=== PATIENT | female | born 1970 | race Caucasian/White ===

== ENCOUNTER 2017-03-25 21:30 | Emergency (ER) | payer OTHER ==
[2017-03-25 21:52] VITALS: BP 160/74; PULSE 95; RESP 20; TEMP 99.3
--- NOTE | 2017-03-25 22:47 | ED ---
Skin/Abscess/FB HPI - General Source: patient, family Mode of arrival: ambulatory Limitations: no limitations <Arcelia Cano - Last Filed: 03/25/17 23:30> <Alfred Sinha - Last Filed: 03/26/17 04:25> - General Chief complaint: Skin/Abscess/Foreign Body Stated complaint: Rash Time Seen by Provider: 03/25/17 22:07 - History of Present Illness Initial comments: 46-year-old female patient with past medical history significant for leukemia presents to emergency department today for evaluation of rash to her left neck and scalp. Patient states that she developed a painful lump in her neck yesterday. Patient states that today she noticed she had a rash over the left neck, left upper back, and on her scalp. Patient states that the area is painful. She describes as a dull aching pain. She denies any itching or drainage. Denies any history of similar lesions. States she did have chickenpox as a child. Patient states that she was camping over the weekend however denies being in any nuno or trees, denies coming into contact with any plants. Denies any fever, chills, headache, auditory disturbance, visual disturbance, chest pain, shortness of breath, throat tightness, difficulty swallowing, abdominal pain, nausea, vomiting, or difficulty with urination or bowel movements. Denies any contacts with similar symptoms. (Arcelia Cano) - Related Data Home Medications Medication Instructions Recorded Confirmed Atenolol [Atenolol] 50 mg PO DAILY 07/08/15 03/25/17 Imatinib Mesylate [Gleevec] 400 mg PO DAILY 03/25/17 03/25/17 Potassium Citrate [Potassium 10 meq PO QID 03/25/17 03/25/17 Citrate ER] Previous Rx's Medication Instructions Recorded valACYclovir HCL [Valacyclovir] 1,000 mg PO Q8H #21 tab 03/25/17 Allergies Allergy/AdvReac Type Severity Reaction Status Date / Time No Known Allergies Allergy Verified 03/25/17 21:52 Review of Systems ROS Other: All systems not noted in ROS Statement are negative. <Arcelia Cano - Last Filed: 03/25/17 23:30> ROS Other: All systems not noted in ROS Statement are negative. <Alfred Sinha - Last Filed: 03/26/17 04:25> ROS Statement: Those systems with pertinent positive or pertinent negative responses have been documented in the HPI. Past Medical History Past Medical History: Hypertension Additional Past Medical History / Comment(s): leukemia, kidney stones History of Any Multi-Drug Resistant Organisms: None Reported Past Surgical History: Tubal Ligation Additional Past Surgical History / Comment(s): lithrotripsy, bone marrow biopsy Past Psychological History: Unable to Obtain Smoking Status: Never smoker Past Alcohol Use History: None Reported Past Drug Use History: None Reported <Arcelia Cano M - Last Filed: 03/25/17 23:30> General Exam Limitations: no limitations General appearance: alert, in no apparent distress Head exam: Present: atraumatic, normocephalic. Absent: normal inspection (Left scalp postauricular area reveals clusters of erythematous and vesicular rash.) ENT exam: Present: normal exam, normal oropharynx, mucous membranes moist, TM's normal bilaterally, other (External auditory canal is free from any lesion or rash.). Absent: normal external ear exam (Small area of erythematous vesicular rash to the left earlobe.) Neck exam: Absent: normal inspection (Left lateral neck reveals scattered erythematous vesicular lesions, no crusting, no drainage.), tenderness, meningismus, lymphadenopathy Respiratory exam: Present: normal lung sounds bilaterally. Absent: respiratory distress, wheezes, rales, rhonchi, stridor Cardiovascular Exam: Present: regular rate, normal rhythm, normal heart sounds. Absent: systolic murmur, diastolic murmur, rubs, gallop, clicks Extremities exam: Present: normal inspection, full ROM, normal capillary refill. Absent: tenderness, pedal edema, joint swelling, calf tenderness Back exam: Absent: normal inspection (Left upper back at the base of the neck shows a patch of small grouped vesicles with surrounding erythema.) Neurological exam: Present: alert, oriented X3, CN II-XII intact Psychiatric exam: Present: normal affect, normal mood Skin exam: Present: warm, dry, intact, normal color, rash (Rash as noted above.) <Arcelia Cano M - Last Filed: 03/25/17 23:30> Medical Decision Making <Arcelia Cano - Last Filed: 03/25/17 23:30> <Alfred Sinha - Last Filed: 03/26/17 04:25> - Medical Decision Making 46-year-old male patient presented to emergency department today for evaluation of a rash to her left scalp, neck, and left upper back. Findings are consistent with herpes zoster infection. Patient will be given a prescription for valacyclovir 1000 mg 3 times daily for 7 days. She is instructed to follow- up with her primary care physician and her oncologist over the next 1-2 days for recheck. Patient instructed to return immediately for any new, worsening, or concerning symptoms. Patient verbalizes understanding and agrees with this plan. (Arcelia Cano) 46-year-old female with rash on her left neck and left anterior chest wall, this does stop at the midline consistent with shingles. Patient does have history of leukemia and is currently on Gleevec. She is otherwise well- appearing. She is given a prescription for Valtrex and will follow up with her primary care physician. (Alfred Sinha) Disposition Time of Disposition: 22:49 <Arcelia Cano - Last Filed: 03/25/17 23:30> <Alfred Sinha - Last Filed: 03/26/17 04:25> Clinical Impression: Herpes zoster Disposition: HOME SELF-CARE Condition: Good Instructions: Shingles (ED) Additional Instructions: Complete medications as prescribed. Stop her primary care physician for recheck in 1-2 days. Return immediately for any worsening, new, or concerning symptoms. Prescriptions: valACYclovir HCL [Valacyclovir] 1,000 mg PO Q8H #21 tab Referrals: Cady Caal MD [Primary Care Provider] - 1-2 days
== END 2017-03-25 22:52 | disposition home or self-care (01) ==
LOC: EC 21:30
DX: B02.9 Zoster without complications (principal); I10 Essential (primary) hypertension; Z85.6 Personal history of leukemia; Z79.899 Other long term (current) drug therapy
CPT/HCPCS: 99282

== ENCOUNTER → 2021-03-17 | Outpatient (CLI) | payer OTHER ==
--- NOTE | 2021-03-17 23:45 | US ---
EXAMINATION TYPE: US kidneys/renal and bladder DATE OF EXAM: 03/17/2021 COMPARISON: NONE CLINICAL HISTORY: R94.4 Abnormal results of kidney function studies. Right kidney measures 9.3 x 3.4 x 3.8 cm. Renal parenchymal echogenicity is within normal limits. No hydronephrosis, shadowing calculi or renal mass seen. There is a 1 x 1 x 0.9 cm hypoechoic lesion in the right kidney upper pole. Left kidney measures 11.5 x 6.6 x 4.7 cm. Renal parenchymal echogenicity is within normal limits. No hydronephrosis, shadowing calculi or renal mass seen. The urinary bladder is partially distended, suboptimal for evaluation. Included portions of the liver are increased in echogenicity and mildly heterogeneous.The visualized portions of the spleen appear unremarkable. IMPRESSION: 1. NO SONOGRAPHIC EVIDENCE OF MEDICAL RENAL DISEASE HYDRONEPHROSIS OR NEPHROLITHIASIS. 2. HYPOECHOIC LESION RIGHT KIDNEY UPPER POLE MEASURES 1 X 1 X 0.9 CM, LIKELY REPRESENTS A COMPLEX CYS T, CONSIDER REPEAT ULTRASOUND OF THE KIDNEYS IN 6-12 MONTHS. 3. MILD HETEROGENEOUS ECHOTEXTURE TO THE LIVER WITH STEATOSIS, THE NEED FOR DEDICATED LIVER IMAGING S UCH ULTRASOUND SHOULD BE DETERMINED ON CLINICAL BASIS.
== END | disposition home or self-care (01) ==
LOC: RADUSWWP 15:50
PROVIDERS: ATTEND Family Medicine
DX: N28.9 Disorder of kidney and ureter, unspecified (principal); K76.0 Fatty (change of) liver, not elsewhere classified
CPT/HCPCS: 76770

== ENCOUNTER → 2021-04-13 | Outpatient (CLI) | payer OTHER ==
--- NOTE | 2021-04-13 09:27 | US ---
EXAMINATION TYPE: US liver DATE OF EXAM: 04/13/2021 COMPARISON: CT abdomen 2013 CLINICAL HISTORY: K76.0 Fatty (change of) liver. fatty liver and known rt kid cyst, no symptoms per p atient EXAM MEASUREMENTS: Liver Length: 17.1 cm Gallbladder Wall: 0.2 cm CBD: 0.4 cm Right Kidney: 9.7 x 3.6 x 3.4 cm Pancreas: wnl Liver: difficult to penetrate and heterogeneous Gallbladder: Surgically absent Evidence for sonographic Warren's sign: no CBD: wnl Right Kidney: 1.3cm cyst seen at superior pole, prior measurement = 1.0cm Visualized portion of pancreas within normal limits. Visualized liver heterogeneously hyperechoic. Ev aluation for focal masses suboptimal due to the heterogeneity. No surrounding ascites. No intrahepati c or extrahepatic biliary dilatation. Gallbladder seen without shadowing mobile gallstones. No gross right-sided hydronephrosis. IMPRESSION: New heterogeneous hyperechoic appearance of liver could be on basis of diffuse fatty infi ltration.
== END | disposition home or self-care (01) ==
LOC: RADUSWWP 08:12
PROVIDERS: ATTEND Family Medicine
DX: K76.0 Fatty (change of) liver, not elsewhere classified (principal); N28.1 Cyst of kidney, acquired
CPT/HCPCS: 76705

== ENCOUNTER → 2022-01-25 | Outpatient (CLI) | payer OTHER ==
[~2022-01-25] MED LIST: TIXAGEVIMAB/CILGAVIMAB (EUA) 300 MG/3 ML COMBO.PKG IM NR
[2022-01-25 09:40] VITALS: RESP 16; TEMP 98.2
[2022-01-25 10:38] VITALS: BP 117/73; PULSE 70
== END ==
LOC: PROCWHC3 09:18
PROVIDERS: ATTEND Internal Medicine Hematology & Oncology
DX: C92.10 Chronic myeloid leukemia, BCR/ABL-positive, not having achieved remission (principal); Z23 Encounter for immunization
CPT/HCPCS: Q0220; M0220

== ENCOUNTER 2023-01-21 21:16 | Inpatient (IN) | payer BC, OTHER ==
[2023-01-21] MEDS ORDERED: TRANEXAMIC 1,000 MG/100ML-NACL 1,000 MG in SALINE 1 100ML.BAG IV STA (21:24)
[2023-01-21 21:45] LABS: Basophils % (A) 0 %; Eosinophils # (A) 0.2 k/uL (0-0.7); Eosinophils % (A) 3 %; HCT 36.3 % (34.0-46.0); HGB 12.1 gm/dL (11.4-16.0); Lymphocytes # (A) 1.3 k/uL (1.0-4.8); Lymphocytes % (A) 17 %; MCHC 33.5 g/dL (31.0-37.0); MCV 98.7 fL (80.0-100.0); Mean Platelet Volume 7.5; Monocytes # (A) 0.4 k/uL (0-1.0); Monocytes % (A) 6 %; Neutrophils # (A) 5.6 k/uL (1.3-7.7); Neutrophils % (A) 73 %; Platelet Count 194 k/uL (150-450); RBC 3.67 m/uL (3.80-5.40); WBC 7.7 k/uL (3.8-10.6)
[2023-01-21] MEDS ORDERED: LORazepam 2 MG/ML INJ IV STA (21:50)
[2023-01-21] MEDS ORDERED: ROCURONIUM 10 MG/ML (5 ML VIAL) IV ONE (22:00)
[2023-01-21] MEDS ORDERED: ETOMIDATE 2 MG/ML 10 ML VIAL ONE (22:00)
[2023-01-21 22:04] LABS: ALT 25 U/L (4-34); AST 38 U/L (14-36); African American GFR (CKD) 51 (>60 ml/min/1.73 sqM); Albumin 3.7 g/dL (3.5-5.0); Alkaline Phosphatase 70 U/L (38-126); Anion Gap 7 mmol/L; Blood Urea Nitrogen 19 mg/dL (7-17); Carbon Dioxide 20 mmol/L (22-30); Chloride 111 mmol/L (98-107); Glucose 154 mg/dL (74-99); Non-African American GFR(CKD) 45 (>60 ml/min/1.73 sqM); Potassium 3.5 mmol/L (3.5-5.1); Sodium 138 mmol/L (137-145); Total Bilirubin 0.5 mg/dL (0.2-1.3); Total Protein 6.6 g/dL (6.3-8.2)
[2023-01-21 22:42] LABS: ABG Base Excess -13.4 mmol/L; ABG HCO3 17 mmol/L (21-25); ABG Oxygen Saturation 99.2 % (94-97); ABG PCO2 57 mmHg (35-45); ABG PO2 263 mmHg (83-108); ABG TCO2 18 mmol/L (19-24); Allen Test Performed? Yes
--- NOTE | 2023-01-21 22:48 | ED ---
Allergic Reaction HPI - General Chief complaint: Allergic Reaction Stated complaint: SWOLLEN TONGUE Time Seen by Provider: 01/21/23 21:30 Source: EMS Mode of arrival: EMS Limitations: no limitations - History of Present Illness Initial Comments: 52-year-old female with past medical history of CML in remission presents to the emergency department with tongue swelling. EMS report that the patient must have encountered something that caused an ALLERGIC reaction. Fire on scene administered an EpiPen. EMS did start an IV and gave the patient 125 of Solu- Medrol and 50 mg of Benadryl. Patient arrives to be and states that she hasn't eaten anything since 11 AM. She does take lisinopril and last dose was taken at 9 AM. She has been on this medication for several years. She denies any shortness of breath. No nausea or vomiting. No hives. No history of ALLERGIC reaction anything in the past. No other alleviating, precipitating or modifying factors - Related Data Home Medications Medication Instructions Recorded Confirmed atenoloL [Atenolol] 50 mg PO DAILY 07/08/15 01/21/23 Imatinib Mesylate [Gleevec] 400 mg PO DAILY 03/25/17 01/21/23 Escitalopram [Lexapro] 5 mg PO DAILY 01/21/23 01/21/23 Triamcinolone 0.1% Ointment 1 applic TOPICAL BID 01/21/23 01/21/23 [Kenalog 0.1% Ointment] metFORMIN HCL [Glucophage] 500 mg PO DAILY 01/21/23 01/21/23 Previous Rx's Medication Instructions Recorded predniSONE 10 mg PO DIRECTED 16 Days #40 01/25/23 tab Amoxic-Pot Clav 875-125Mg 1 each PO Q12HR tab 01/26/23 [Augmentin 875-125] Allergies Allergy/AdvReac Type Severity Reaction Status Date / Time lisinopril Allergy Anaphylaxis Verified 01/21/23 22:40 Review of Systems ROS Statement: Those systems with pertinent positive or pertinent negative responses have been documented in the HPI. ROS Other: All systems not noted in ROS Statement are negative. Past Medical History Past Medical History: Cancer, Hypertension Additional Past Medical History / Comment(s): leukemia, kidney stones History of Any Multi-Drug Resistant Organisms: None Reported Past Surgical History: Tubal Ligation Additional Past Surgical History / Comment(s): lithrotripsy, bone marrow biopsy Past Anesthesia/Blood Transfusion Reactions: No Reported Reaction Past Psychological History: Anxiety Smoking Status: Never smoker - Past Family History Mother Family Medical History: Diabetes Mellitus General Exam Limitations: physical limitation (significant tongue swelling) General appearance: alert, in no apparent distress Head exam: Present: atraumatic, normocephalic, normal inspection Eye exam: Present: normal appearance, PERRL, EOMI. Absent: scleral icterus, conjunctival injection, periorbital swelling ENT exam: Present: other (Proptotic tongue. Floor of mouth is swollen. Patient has significant neck soft tissue swelling) Neck exam: Present: other (swelling extending into anterior neck). Absent: tenderness, meningismus, lymphadenopathy Respiratory exam: Present: normal lung sounds bilaterally. Absent: respiratory distress, wheezes, rales, rhonchi, stridor Cardiovascular Exam: Present: normal rhythm, tachycardia, normal heart sounds. Absent: systolic murmur, diastolic murmur, rubs, gallop, clicks GI/Abdominal exam: Present: soft, normal bowel sounds. Absent: distended, tenderness, guarding, rebound, rigid Extremities exam: Present: normal inspection, full ROM, normal capillary refill. Absent: tenderness, pedal edema, joint swelling, calf tenderness Back exam: Present: normal inspection Neurological exam: Present: alert, oriented X3, CN II-XII intact Psychiatric exam: Present: normal affect, normal mood Skin exam: Present: warm, dry, intact, normal color. Absent: rash Course Vital Signs 01/21/23 01/21/23 01/21/23 21:20 21:27 21:30 Temperature Pulse Rate 115 H 115 H Pulse Rate [ Ticket Writer ] Respiratory 28 H 22 14 Rate Blood Pressure 137/84 137/84 Blood Pressure [Left Arm] O2 Sat by Pulse 99 98 97 Oximetry Fraction of Inspired Oxygen (FIO2) 01/21/23 01/21/23 01/21/23 21:33 21:53 22:00 Temperature Pulse Rate 124 H 128 H 134 H Pulse Rate [ Ticket Writer ] Respiratory 26 H 24 16 Rate Blood Pressure 138/100 155/66 131/68 Blood Pressure [Left Arm] O2 Sat by Pulse 96 98 98 Oximetry Fraction of Inspired Oxygen (FIO2) 01/21/23 01/21/23 01/21/23 22:22 22:23 22:45 Temperature Pulse Rate 123 H Pulse Rate [ Ticket Writer ] Respiratory 26 H Rate Blood Pressure 138/67 Blood Pressure [Left Arm] O2 Sat by Pulse 97 Oximetry Fraction of 100 100 Inspired Oxygen (FIO2) 01/21/23 01/21/23 01/21/23 22:53 23:10 23:20 Temperature Pulse Rate 122 H 120 H Pulse Rate [ Ticket Writer ] Respiratory 20 18 Rate Blood Pressure 132/73 136/76 Blood Pressure [Left Arm] O2 Sat by Pulse 96 97 Oximetry Fraction of 70 Inspired Oxygen (FIO2) 01/21/23 01/22/23 01/22/23 23:30 00:00 00:13 Temperature 98.2 F 98.4 F Pulse Rate 118 H 122 H Pulse Rate [ 103 H Ticket Writer ] Respiratory 18 30 H 17 Rate Blood Pressure 138/67 101/52 Blood Pressure 87/44 [Left Arm] O2 Sat by Pulse 97 98 96 Oximetry Fraction of 70 70 Inspired Oxygen (FIO2) Procedures - Intubation Sedative: Etomidate Mg Given: 20 Paralytic: Rocuronium Mg Given: 50 Laryngoscope: other (glidescope) Size: 4 Assist Device Used: Bougie ET Tube Size: 6 ET Tube Uncuffed: No Tube Secured Depth (cm): 22 Tube Secured Location: lips Tube Placement Confirmation: visualized tube passing through cords, equal breath sounds bilaterally, no breath sounds over epigastrium, confirmation by capnometry Intubation Complications: difficult intubation, other (significant airway swelling involving down to the cords) Medical Decision Making - Medical Decision Making Was pt. sent in by a medical professional or institution (, PA, [facility], urgent care, hospital, or [facility]...) When possible be specific @ -No Did you speak to anyone other than the patient for history (EMS, parent, family, police, friend...)? What history was obtained from this source @ -, ems Did you review nursing and triage notes (agree or disagree)? Why? @ -I reviewed and agree with nursing and triage notes Were old charts reviewed (outside hosp., previous admission, EMS record, old EKG, old radiological studies, urgent care reports/EKG's, [facility] records)? Report findings @ -No old charts were reviewed Differential Diagnosis (chest pain, altered mental status, abdominal pain women, abdominal pain men, vaginal bleeding, weakness, fever, dyspnea, syncope, headache, dizziness, GI bleed, back pain, seizure, CVA, palpatations, mental health, musculoskeletal)? @ -allergic reaction, ludwigs, angioedema EKG interpreted by me (3pts min.). @ -Yes and demonstrates sinus tachycardia with a rate of 116. TX interval 159. QRS 112. QTC of 421. No acute ST segment elevations or depressions X-rays interpreted by me (1pt min.). @ - yes, tube in correct position CT interpreted by me (1pt min.). @ -Not done U/S interpreted by me (1pt. min.). @ -None done What testing was considered but not performed or refused? (CT, X-rays, U/S, labs)? Why? @ -None What meds were considered but not given or refused? Why? @ -None Did you discuss the management of the patient with other professionals (professionals i.e. , PA, [facility], lab, RT, psych nurse, psychologist social, truck loader overhead crane, teacher, chief revenue officer, human services case manager)? Give summary @ -Dr. Fry, Dr. Gallegos Was smoking cessation discussed for >3mins.? @ -No Was critical care preformed (if so, how long)? @ -yes, 35 minutes for airway management Were there social determinants of health that impacted care today? How? (Homelessness, low income, unemployed, alcoholism, drug addiction, transpo rtation, low edu. Level, literacy, decrease access to med. care, senior care, rehab)? @ -No Was there de-escalation of care discussed even if they declined (Discuss DNR or withdrawal of care, Hospice)? DNR status @ -No What co-morbidities impacted this encounter? (DM, HTN, Smoking, COPD, CAD, Cancer, CVA, ARF, Chemo, Hep., AIDS, mental health diagnosis, sleep apnea, morbid obesity)? @ -htn Was patient admitted / discharged? Hospital course, mention meds given and route, prescriptions, significant lab abnormalities, going to OR and other pertinent info. @ -Upon arrival patient is placed into trauma 2. She does have significant tongue swelling. She was given a second dose of IM epi 0.5 mg. Upon discussion with the patient's she is on an FLORIAN inhibitor. She has not eaten since 11 AM. Suspected Florian induced angioedema. Patient was administered 1 g of TXA. She is also given 1 mg as she states she feels extremely anxious. Patient is watched closely however patient begins developing some minimal airway stridor. I did discuss protecting the patient's airway with intubation for which she was agreeable. Patient was given 20 mg of etomidate and cord is visualized. Patient is then given 50 mg of rocuronium. Several attempts are required to pass the tube due to significant swelling around the cords. A bougie is required and we are able to pass a 6 inch tube. Post chest x-ray demonstrates adequate placement. Patient will be admitted to Dr. Gallegos who accepted admission. Dr. Fry aware and accepts patient. Undiagnosed new problem with uncertain prognosis? @ -yes Drug Therapy requiring intensive monitoring for toxicity (Heparin, Nitro, Insulin, Cardizem)? @ -Propofol Were any procedures done? @ -Intubation Diagnosis/symptom? @ -acute angioedema, acute bipap dependance Acute, or Chronic, or Acute on Chronic? @ -acute Uncomplicated (without systemic symptoms) or Complicated (systemic symptoms)? @ -complicated Side effects of treatment? @ -No Exacerbation, Progression, or Severe Exacerbation? @ -No Poses a threat to life or bodily function? How? (Chest pain, [place], [place], pneumonia, PE, COPD, DKA, ARF, appy, cholecystitis, CVA, Diverticulitis, Homicidal, Suicidal, threat to staff... and all critical care pts) @ -yes - intubation was extremely difficult due to airway swelling - Lab Data Result diagrams: 01/26/23 10:23 01/26/23 10:23 Lab Results 01/21/23 01/21/23 01/21/23 Range/Units 21:24 21:24 21:55 WBC 7.7 (3.8-10.6) k/uL RBC 3.67 L (3.80-5.40) m/uL Hgb 12.1 (11.4-16.0) gm/dL Hct 36.3 (34.0-46.0) % MCV 98.7 (80.0-100.0) fL MCH 33.0 (25.0-35.0) pg MCHC 33.5 (31.0-37.0) g/dL RDW 14.0 (11.5-15.5) % Plt Count 194 (150-450) k/uL MPV 7.5 Neutrophils % 73 % Lymphocytes % 17 % Monocytes % 6 % Eosinophils % 3 % Basophils % 0 % Neutrophils # 5.6 (1.3-7.7) k/uL Lymphocytes # 1.3 (1.0-4.8) k/uL Monocytes # 0.4 (0-1.0) k/uL Eosinophils # 0.2 (0-0.7) k/uL Basophils # 0.0 (0-0.2) k/uL Sample Site ABG pH (7.35-7.45) ABG pCO2 (35-45) mmHg ABG pO2 (83-108) mmHg ABG HCO3 (21-25) mmol/L ABG Total CO2 (19-24) mmol/L ABG O2 Saturation (94-97) % ABG Base Excess mmol/L Bishop Test FiO2 % Sodium 138 (137-145) mmol/L Potassium 3.5 (3.5-5.1) mmol/L Chloride 111 H (98-107) mmol/L Carbon Dioxide 20 L (22-30) mmol/L Anion Gap 7 mmol/L BUN 19 H (7-17) mg/dL Creatinine 1.38 H (0.52-1.04) mg/dL Est GFR (CKD-EPI)AfAm 51 (>60 ml/min/1.73 sqM) Est GFR (CKD-EPI)NonAf 45 (>60 ml/min/1.73 sqM) Glucose 154 H (74-99) mg/dL Calcium 8.0 L (8.4-10.2) mg/dL Total Bilirubin 0.5 (0.2-1.3) mg/dL AST 38 H (14-36) U/L ALT 25 (4-34) U/L Alkaline Phosphatase 70 (38-126) U/L Total Protein 6.6 (6.3-8.2) g/dL Albumin 3.7 (3.5-5.0) g/dL Blood Type B Positive Blood Type Confirm Blood Type Recheck No Previous Record Bld Type Recheck Status CABO Indicated Antibody Screen NEGATIVE Spec Expiration Date 01/24/2023 - 235401/21/23 01/21/23 Range/Units 22:00 22:40 WBC (3.8-10.6) k/uL RBC (3.80-5.40) m/uL Hgb (11.4-16.0) gm/dL Hct (34.0-46.0) % MCV (80.0-100.0) fL MCH (25.0-35.0) pg MCHC (31.0-37.0) g/dL RDW (11.5-15.5) % Plt Count (150-450) k/uL MPV Neutrophils % % Lymphocytes % % Monocytes % % Eosinophils % % Basophils % % Neutrophils # (1.3-7.7) k/uL Lymphocytes # (1.0-4.8) k/uL Monocytes # (0-1.0) k/uL Eosinophils # (0-0.7) k/uL Basophils # (0-0.2) k/uL Sample Site rbra ABG pH 7.08 L* (7.35-7.45) ABG pCO2 57 H (35-45) mmHg ABG pO2 263 H (83-108) mmHg ABG HCO3 17 L (21-25) mmol/L ABG Total CO2 18 L (19-24) mmol/L ABG O2 Saturation 99.2 H (94-97) % ABG Base Excess -13.4 mmol/L Bishop Test Yes FiO2 100 % Sodium (137-145) mmol/L Potassium (3.5-5.1) mmol/L Chloride (98-107) mmol/L Carbon Dioxide (22-30) mmol/L Anion Gap mmol/L BUN (7-17) mg/dL Creatinine (0.52-1.04) mg/dL Est GFR (CKD-EPI)AfAm (>60 ml/min/1.73 sqM) Est GFR (CKD-EPI)NonAf (>60 ml/min/1.73 sqM) Glucose (74-99) mg/dL Calcium (8.4-10.2) mg/dL Total Bilirubin (0.2-1.3) mg/dL AST (14-36) U/L ALT (4-34) U/L Alkaline Phosphatase (38-126) U/L Total Protein (6.3-8.2) g/dL Albumin (3.5-5.0) g/dL Blood Type Blood Type Confirm B Positive Blood Type Recheck Bld Type Recheck Status Antibody Screen Spec Expiration Date Disposition Clinical Impression: Angioedema, Ventilator dependent Disposition: ADMITTED IP TO THIS [facility] Condition: Stable Is patient prescribed a controlled substance at d/c from ED?: No Time of Disposition: 23:20 Decision to Admit Reason: Admit from EC Decision Date: 01/21/23 Decision Time: 23:20
[2023-01-21 22:53] LABS: ABG PH 7.08 (7.35-7.45)
--- NOTE | 2023-01-21 23:06 | XR ---
ADDENDUM - Added by Larry Rowell MD on 01/21/2023 11:51 PM (-07:00) EXAM: XR Chest, 1 View CLINICAL HISTORY: Intubation. TECHNIQUE: Frontal view of the chest. COMPARISON: June 18, 2011. FINDINGS: Lungs: Unremarkable. No acute infiltration, atelectasis or mass. Pleural space: Unremarkable. No pneumothorax or pleural fluid. Heart: Unremarkable. No cardiomegaly. Mediastinum: Unremarkable. Bones/joints: No acute findings. Tubes, lines and devices: The tip of an endotracheal tube measures 2 cm above the manjula. IMPRESSION: The tip of an endotracheal tube measures centimeters above the manjula. EXAM: XR Chest, 1 View CLINICAL HISTORY: Intubation. TECHNIQUE: Frontal view of the chest. COMPARISON: June 18, 2011. FINDINGS: Lungs: Unremarkable. No acute infiltration, atelectasis or mass. Pleural space: Unremarkable. No pneumothorax or pleural fluid. Heart: Unremarkable. No cardiomegaly. Mediastinum: Unremarkable. Bones/joints: No acute findings. Tubes, lines and devices: The tip of an endotracheal tube measures centimeters above the manjula.
[2023-01-21] MEDS ORDERED: NALOXONE 0.4 MG/ML 1 ML VIAL IV PRN (23:20)
[2023-01-22 00:08] LABS: Glucose,Whole Blood 287 mg/dL (70-110)
[2023-01-22] MEDS ORDERED: DEXTROSE 50% SYRINGE 50 ML IVP PRN ×2 (00:11)
[2023-01-22] MEDS ORDERED: SODIUM CHLORIDE 0.9% 1,000 ML IV SCH (00:15)
--- NOTE | 2023-01-22 00:52 | XR ---
EXAM: XR Chest, 1 View CLINICAL HISTORY: Nasogastric tube placement TECHNIQUE: Frontal view of the chest. COMPARISON: No relevant prior studies available. FINDINGS: Lungs: Appearance of mild infiltration or atelectasis in the left lung base obscuring the left hemidiaphragm. Lungs otherwise clear. Pleural space: Unremarkable. No pneumothorax or pleural fluid. Heart: Unremarkable. No cardiomegaly. Mediastinum: Unremarkable. Bones/joints: No acute findings. Tubes, lines and devices: The tip of an endotracheal tube measures 3.1 cm above the manjula. A gastric tube is seen in the stomach. The tip is not seen. IMPRESSION: 1. Appearance of mild infiltration or atelectasis in the left lung base obscuring the left hemidiaphragm. 2. The tip of an endotracheal tube measures 3.1 cm above the manjula. A gastric tube is seen in the stomach. The tip is not seen.
[2023-01-22] MEDS ORDERED: SODIUM CHLORIDE 0.9% 500 ML 500 ML IV ONE (00:55)
[2023-01-22] MEDS: INSULIN ASPART (NovoLOG) 100 UNIT/ML VIAL SQ SCH ×5 (00:57→23:25)
[2023-01-22 01:02] LABS: ABG Base Excess -9.2 mmol/L; ABG HCO3 18 mmol/L (21-25); ABG Oxygen Saturation 96.3 % (94-97); ABG PCO2 41 mmHg (35-45); ABG PH 7.25 (7.35-7.45); ABG PO2 86 mmHg (83-108); ABG TCO2 19 mmol/L (19-24); Allen Test Performed? Yes
[2023-01-22 01:12] LABS: African American GFR (CKD) 52 (>60 ml/min/1.73 sqM); Anion Gap 12 mmol/L; Blood Urea Nitrogen 19 mg/dL (7-17); Calcium 7.2 mg/dL (8.4-10.2); Carbon Dioxide 16 mmol/L (22-30); Chloride 110 mmol/L (98-107); Glucose 304 mg/dL (74-99); Magnesium 1.4 mg/dL (1.6-2.3); Non-African American GFR(CKD) 45 (>60 ml/min/1.73 sqM); Potassium 3.9 mmol/L (3.5-5.1); Sodium 138 mmol/L (137-145)
[2023-01-22 01:30] LABS: Basophils % (A) 0 %; Eosinophils % (A) 0 %; HCT 33.1 % (34.0-46.0); HGB 10.9 gm/dL (11.4-16.0); Hypochromasia Slight; Lymphocytes # (A) 0.4 k/uL (1.0-4.8); Lymphocytes % (A) 4 %; MCH 33.4 pg (25.0-35.0); MCHC 32.8 g/dL (31.0-37.0); MCV 101.7 fL (80.0-100.0); Macrocytosis Slight; Mean Platelet Volume 7.5; Monocytes # (A) 0.1 k/uL (0-1.0); Monocytes % (A) 1 %; Neutrophils # (A) 9.8 k/uL (1.3-7.7); Neutrophils % (A) 95 %; Platelet Count 189 k/uL (150-450); RBC 3.26 m/uL (3.80-5.40); RDW 13.9 % (11.5-15.5); WBC 10.4 k/uL (3.8-10.6)
[2023-01-22] MEDS ORDERED: SODIUM CHLORIDE 0.9% 1,000 ML IV ONE (01:43)
[2023-01-22] MEDS ORDERED: Magnesium Replacement Protocol 1 EACH MISC MISCELLANE PRN (02:25)
[2023-01-22] MEDS ORDERED: Potassium Replacement Protocol 1 EACH MISC MISCELLANE PRN ×2 (02:26→20:33)
--- NOTE | 2023-01-22 02:43 | P.CNPUL ---
History of Present Illness Consult date: 01/22/23 Requesting physician: Opal Slater Reason for consult: other (ICU management) Chief complaint: Tongue swelling History of present illness: I am seeing this patient in new consultation today 01/22/2023 following an ALLERGIC reaction and angioedema. Patient is a 52-year-old white female with pa st medical history significant for hypertension, diabetes mellitus type 2, chronic kidney disease, and CML. Patient is currently intubated to the mechanical ventilator, and most of this HPI is collected from the patient's family members and chart. Patient's states that yesterday evening the patient started to experience some nausea, vomiting, diarrhea, followed by facial and tongue swelling. The patient's states that she has been taking blood pressure medication for the last 1-2 years, but was unsure if Lisinopril was a new medication. Denies the patient trying any new foods or prior ALLERGIC reactions. EMS was called and the patient was administered an EpiPen on the scene. Patient also was given IV Solu-Medrol and Benadryl. The patient was taken to the emergency room last night, and required rapid sequence intubation for airway protection. Post intubation chest x-ray shows endotracheal tube approximately 3 cm from the manjula, possible mild infiltrate or more likely atelectasis in the left lung base, and an orogastric tube coursing below the diaphragm. Patient is currently in the intensive care unit, intubated, and synchronous with the mechanical ventilator. Current ventilator settings are assist control, respiratory rate 16, tidal volume 350, FiO2 70%, an d PEEP of 5. Most recent ABG show a pO2 of 86, pCO2 of 41, pH of 7.25. Propofol is currently infusing at 60 mcg/kg/m for sedation. While in the emergency room, the patient did receive a dose of TXA and IM epinephrine. Patient is currently hypotensive and tachycardic. The patient will be given additional fluids. No vasopressors are currently infusing. CBC on arrival was unremarkable. BMP on a rrival shows a sodium 138, potassium 3.5, chloride 111, serum CO2 20, BUN 19, creatinine 1.3, glucose 154. Patient will be monitored in the intensive care unit. Review of Systems ROS unobtainable: due to endotracheal tube Past Medical History Past Medical History: Cancer, Diabetes Mellitus, Hypertension Additional Past Medical History / Comment(s): leukemia 2004, kidney stones 2015 History of Any Multi-Drug Resistant Organisms: None Reported Past Surgical History: Tubal Ligation Additional Past Surgical History / Comment(s): lithrotripsy 2014, bone marrow biopsy 2004 Past Anesthesia/Blood Transfusion Reactions: No Reported Reaction Past Psychological History: Anxiety, Panic Disorder Smoking Status: Never smoker Past Alcohol Use History: None Reported Past Drug Use History: None Reported - Past Family History Mother Family Medical History: Diabetes Mellitus Medications and Allergies Home Medications Medication Instructions Recorded Confirmed Type atenoloL [Atenolol] 50 mg PO DAILY 07/08/15 01/21/23 History Imatinib Mesylate [Gleevec] 400 mg PO DAILY 03/25/17 01/21/23 History Escitalopram [Lexapro] 5 mg PO DAILY 01/21/23 01/21/23 History Triamcinolone 0.1% Ointment 1 applic TOPICAL BID 01/21/23 01/21/23 History [Kenalog 0.1% Ointment] metFORMIN HCL [Glucophage] 500 mg PO DAILY 01/21/23 01/21/23 History Allergies Allergy/AdvReac Type Severity Reaction Status Date / Time lisinopril Allergy Anaphylaxis Verified 01/21/23 22:40 Physical Exam Vitals: Vital Signs Temp Pulse Pulse Resp BP BP Pulse Ox 01/22/23 01:16 98.2 F 105 H 19 80/44 96 01/22/23 01:00 105 H 27 H 75/38 96 01/22/23 00:46 01/22/23 00:30 120 H 26 H 93 L 01/22/23 00:13 98.4 F 103 H 17 87/44 96 01/22/23 00:00 98.2 F 122 H 30 H 101/52 98 01/21/23 23:30 118 H 18 138/67 97 01/21/23 23:20 120 H 18 136/76 97 01/21/23 23:10 122 H 20 132/73 96 01/21/23 22:53 01/21/23 22:45 123 H 26 H 138/67 97 01/21/23 22:23 01/21/23 22:22 01/21/23 22:00 134 H 16 131/68 98 01/21/23 21:53 128 H 24 155/66 98 01/21/23 21:33 124 H 26 H 138/100 96 01/21/23 21:30 115 H 14 137/84 97 01/21/23 21:27 115 H 22 137/84 98 01/21/23 21:20 28 H 99 FiO2 01/22/23 01:16 70 01/22/23 01:00 01/22/23 00:46 70 01/22/23 00:30 01/22/23 00:13 70 01/22/23 00:00 70 01/21/23 23:30 01/21/23 23:20 01/21/23 23:10 01/21/23 22:53 70 01/21/23 22:45 01/21/23 22:23 100 01/21/23 22:22 100 01/21/23 22:00 01/21/23 21:53 01/21/23 21:33 01/21/23 21:30 01/21/23 21:27 01/21/23 21:20 Intake and Output 01/21/23 01/21/23 01/22/23 14:59 22:59 06:59 Intake Total 1530.681 Output Total 270 Balance 1260.681 Intake: IV 1500 Sodium Chloride 0.9% 1, 1000 000 ml @ 999 mls/hr IV . Q1H1M ONE Rx#:[id number] Sodium Chloride 0.9% 500 500 ml 500 ml @ 999 mls/hr IV .Q31M ONE Rx#:[id number] Intake, IV Titration 30.681 Amount propofoL 1,000 mg In 30.681 Empty Bag 1 bag @ 15 MCG/ KG/MIN 7.757 mls/hr IV . [id number] [facility] Rx#:[id number] Output: Urine 270 Other: Weight 86.183 kg 86.183 kg GENERAL EXAM: 52-year-old, obese white female, sedated and synchronous with mechanical ventilator. HEAD: Normocephalic and atraumatic. There is facial swelling and obvious swelling of the tongue. EYES: Normal reaction of pupils, equal size. NOSE: Clear with pink turbinates. THROAT: No erythema or exudates. NECK: No masses, no JVD. CHEST: No chest wall deformity. LUNGS: Equal air entry with minimal wheezing. no crackles, rhonchi or dullness. Intubated to mechanical ventilator CVS: S1 and S2 normal with no audible murmur, regular rhythm. No extra heart sounds. Heart rate is tachycardic ABDOMEN: Obese abdomen. No hepatosplenomegaly, active bowel sounds, no guarding or rigidity. SPINE: No scoliosis or deformity SKIN: No rashes CENTRAL NERVOUS SYSTEM: No focal deficits, tone is normal in all 4 extremities. EXTREMITIES: There is no peripheral edema, clubbing, or cyanosis. Peripheral pulses are intact. Results - Laboratory Findings CBC and BMP: 01/22/23 05:29 01/22/23 08:31 ABG ABG pH 7.25 (7.35-7.45) L 01/22/23 00:56 ABG pCO2 41 mmHg (35-45) 01/22/23 00:56 ABG pO2 86 mmHg (83-108) 01/22/23 00:56 ABG O2 Saturation 96.3 % (94-97) 01/22/23 00:56 Abnormal lab findings: Abnormal Labs 01/21/23 01/21/23 01/21/23 21:24 21:24 22:40 RBC 3.67 L Hgb Hct MCV Neutrophils # Lymphocytes # ABG pH 7.08 L* ABG pCO2 57 H ABG pO2 263 H ABG HCO3 17 L ABG Total CO2 18 L ABG O2 Saturation 99.2 H Chloride 111 H Carbon Dioxide 20 L BUN 19 H Creatinine 1.38 H Glucose 154 H POC Glucose (mg/dL) Calcium 8.0 L Magnesium AST 38 H 01/22/23 01/22/23 01/22/23 00:06 00:39 00:39 RBC 3.26 L Hgb 10.9 L Hct 33.1 L MCV 101.7 H Neutrophils # 9.8 H Lymphocytes # 0.4 L ABG pH ABG pCO2 ABG pO2 ABG HCO3 ABG Total CO2 ABG O2 Saturation Chloride 110 H Carbon Dioxide 16 L BUN 19 H Creatinine 1.36 H Glucose 304 H POC Glucose (mg/dL) 287 H Calcium 7.2 L Magnesium 1.4 L AST 01/22/23 00:56 RBC Hgb Hct MCV Neutrophils # Lymphocytes # ABG pH 7.25 L ABG pCO2 ABG pO2 ABG HCO3 18 L ABG Total CO2 ABG O2 Saturation Chloride Carbon Dioxide BUN Creatinine Glucose POC Glucose (mg/dL) Calcium Magnesium AST - Diagnostic Findings Chest x-ray: image reviewed Assessment and Plan Assessment: Angioedema possibly related to lisinopril, patient was treated with IM epinephrine, Solu-Medrol, Benadryl, and was given a dose of TXA. Acute hypoxemic and hypercapnic respiratory failure secondary to above, currently intubated to the mechanical ventilator Hypotension and possible anaphylactic shock, currently receiving fluid resusc itation. No need for vasopressors at the moment Essential hypertension Diabetes mellitus type 2, [id number] Chronic kidney disease stage III CML currently being treated with Gleevec Obesity, with a BMI of 37 Plan: Patient's medications, labs, chest x-ray reviewed Continue current mechanical ventilator settings and wean FiO2 as tolerated Repeat ABG in the morning Repeat chest x-ray in the morning Lisinopril has been stopped Give an additional 1 L normal saline bolus Continue maintenance fluids Patient was given a dose of TXA in the ER Continue IV Solu-Medrol and Benadryl Propofol for sedation Pepcid for GI prophylaxis Heparin for DVT prophylaxis We will continue to monitor the patient in the intensive care unit I have personally seen and examined the patient, performed the documentation and the assessment and plan as written. Number of minutes spent on the visit:20 This is a joint evaluation that was done along with a nurse practitioner. This is a 52-year-old female patient, obese with a body mass index of 39 with features of obstructive sleep apnea with takes OLMAN inhibitor's. The patient presented emergency with respiratory failure and angioedema and this was thought to be related to lisinopril. In the emergency, the patient was treated with FFP, TXA, Solu-Medrol, Benadryl and epinephrine. At this point in time, the patient remains intubated by a #orotracheal tube. She is on propofol which is running at 60 mcg/kg/m. She is hemodynamically stable. Breath sounds are equal and bilateral. Lip and tongue are still swollen and the tongue remains somewhat tortuous. He had since improved compared to yesterday. She remains on IV Solu- Medrol. She is on IV fluids with lactated Ringer at the rate of 75 mL an hour. The repeat blood gas from this morning showed a pH of 7.26 with a pCO2 of 41 and pO2 of 75. She does have a component of non-anion gap metabolic acidosis. The bicarb level is down to 14. Sugars are slightly elevated and this is a steroid induced hyperglycemia. She has underlying chronic lymphocytic leukemia/CLL and the patient has been maintained on Gleevec on an outpatient basis. She also has history of chronic stage III kidney disease. Chest x-ray from this morning shows adequate expansion of both lungs. No pneumonia or consolidation. ET tube is in a good location. This is a ventilator changes were done. Increase the tidal volume of 400 and increase the flow up to 65. She seems to be quite comfortable at this point in time. At times she moves and stacks of breath. She is synchronous with a electrical checkout mechanic and ventilator for the most part. We'll continue with the Solu-Medrol 60 mg every 6 hours. Continue Pepcid. Continue Benadryl. No plans for extubation today. Stop the OLMAN inhibitor obviously. Consult with hematology oncology. As mentioned, there is a component of melena negative metabolic acidosis. I'm going to switch to her IV fluids to a bicarb infusion at the rate of 75 mL an hour. Will monitor acid base status. We'll continue to follow. Condition is critical at this point in time. Evaluation was done> 30min Time with Patient: Greater than 30
[2023-01-22] MEDS ORDERED: POTASSIUM BICARBONATE/CIT AC 20 MEQ TABLET.EFF NG-TUBE SCH ×2 (03:00→07:00)
[2023-01-22] MEDS: MAGNESIUM SULFATE-D5W PMX 1 GM in DEXTROSE/WATER 1 100ML.BAG IVPB SCH ×2 (03:15→04:53)
[2023-01-22] MEDS: IPRATROPIUM-ALBUTEROL 3 ML NEB INHALATION SCH ×5 (03:28→21:25)
[2023-01-22 04:49] LABS: Allen Test Performed? Yes
[2023-01-22 05:50] LABS: Glucose,Whole Blood 255 mg/dL (70-110)
[2023-01-22 05:57] LABS: ABG Base Excess -8.8 mmol/L; ABG HCO3 18 mmol/L (21-25); ABG PCO2 41 mmHg (35-45); ABG PH 7.26 (7.35-7.45); ABG PO2 175 mmHg (83-108); ABG TCO2 20 mmol/L (19-24)
[2023-01-22 05:58] LABS: ABG Oxygen Saturation 99.8 % (94-97)
[2023-01-22 06:12] LABS: African American GFR (CKD) 53 (>60 ml/min/1.73 sqM); Anion Gap 10 mmol/L; Blood Urea Nitrogen 18 mg/dL (7-17); Calcium 6.8 mg/dL (8.4-10.2); Carbon Dioxide 14 mmol/L (22-30); Chloride 113 mmol/L (98-107); Glucose 264 mg/dL (74-99); Non-African American GFR(CKD) 46 (>60 ml/min/1.73 sqM); Potassium 3.9 mmol/L (3.5-5.1); Sodium 137 mmol/L (137-145)
[2023-01-22 06:16] LABS: Basophils % (A) 0 %; Eosinophils % (A) 0 %; HCT 31.5 % (34.0-46.0); HGB 10.2 gm/dL (11.4-16.0); Hypochromasia Slight; Lymphocytes # (A) 0.4 k/uL (1.0-4.8); Lymphocytes % (A) 6 %; MCH 33.4 pg (25.0-35.0); MCHC 32.4 g/dL (31.0-37.0); MCV 103.2 fL (80.0-100.0); Macrocytosis Slight; Mean Platelet Volume 7.6; Monocytes # (A) 0.1 k/uL (0-1.0); Monocytes % (A) 1 %; Neutrophils # (A) 6.3 k/uL (1.3-7.7); Neutrophils % (A) 93 %; Platelet Count 163 k/uL (150-450); RBC 3.05 m/uL (3.80-5.40); RDW 13.9 % (11.5-15.5); WBC 6.8 k/uL (3.8-10.6)
[2023-01-22] MEDS: diphenhydrAMINE 50 MG/ML 1 ML VIAL IVP SCH ×4 (06:31→23:25)
[2023-01-22] MEDS: methylPREDNISolone SOD SUCCI 125 MG/2 ML VIAL IV SCH ×4 (06:31→23:25)
[2023-01-22] MEDS ORDERED: LACTATED RINGERS 1,000 ML IV SCH (07:30)
--- NOTE | 2023-01-22 08:21 | XR ---
EXAMINATION TYPE: XR chest 1V portable DATE OF EXAM: 01/22/2023 COMPARISON: 01/23/2000 HISTORY: Shortness of breath TECHNIQUE: Single frontal view of the chest is obtained. FINDINGS: ET and NG tube are stable and in good position. Heart size stable and there is bilateral l ower lobe and 3 small effusion. No overt failure or pneumothorax. Osseous structures are stable IMPRESSION: Stable bilateral lower lobe infiltrate and small effusion.
[2023-01-22] MEDS: HEPARIN SODIUM,PORCINE/PF 5,000 UNIT/0.5 ML SYRINGE SQ SCH ×3 (08:43→23:25)
[2023-01-22] MEDS: CHLORHEXIDINE GLUCONATE 15 ML CUP MUCOUS MEM SCH ×2 (08:43→20:59)
[2023-01-22] MEDS ORDERED: FAMOTIDINE 20 MG/2 ML VIAL IV SCH (09:00)
[2023-01-22 11:49] LABS: Glucose,Whole Blood 217 mg/dL (70-110)
[2023-01-22] MEDS: DEXTROSE 5% IN WATER 1,000 ML with SODIUM BICARB (1 MEQ/ML) 150 ML IV SCH (12:00)
[2023-01-22] MEDS: LORazepam 2 MG/ML INJ IV PRN ×3 (17:09→23:59)
[2023-01-22 18:21] LABS: Glucose,Whole Blood 251 mg/dL (70-110)
--- NOTE | 2023-01-22 18:48 | P.HPIM ---
History of Present Illness H&P Date: 01/22/23 Faustino Kelly, is a 52-year-old female who presented to [facility] emergency room with a chief complaint of nausea or vomiting and facial and tongue swelling. She was evaluated in the emergency room patient started having difficulty breathing and underwent intubation and was started on mechanical ventilation in the emergency room patient was admitted to intensive care unit. Pulmonary consultation was requested. Patient has a known history of hypertension she has been maintained on multiple blood pressure medications including atenolol and lisinopril, she also has a known history of chronic myelocytic leukemia, history of kidney stones, history of vsi-cvoeali-endqtllab diabetes mellitus, and history of anxiety with panic disorder. Past Medical History Past Medical History: Cancer, Diabetes Mellitus, Hypertension Additional Past Medical History / Comment(s): leukemia 2004, kidney stones 2014 History of Any Multi-Drug Resistant Organisms: None Reported Past Surgical History: Tubal Ligation Additional Past Surgical History / Comment(s): lithrotripsy 2014, bone marrow biopsy 2004 Past Anesthesia/Blood Transfusion Reactions: No Reported Reaction Past Psychological History: Anxiety, Panic Disorder Smoking Status: Never smoker Past Alcohol Use History: None Reported Past Drug Use History: None Reported - Past Family History Mother Family Medical History: Diabetes Mellitus Medications and Allergies Home Medications Medication Instructions Recorded Confirmed Type atenoloL [Atenolol] 50 mg PO DAILY 07/08/15 01/21/23 History Imatinib Mesylate [Gleevec] 400 mg PO DAILY 03/25/17 01/21/23 History Escitalopram [Lexapro] 5 mg PO DAILY 01/21/23 01/21/23 History Triamcinolone 0.1% Ointment 1 applic TOPICAL BID 01/21/23 01/21/23 History [Kenalog 0.1% Ointment] metFORMIN HCL [Glucophage] 500 mg PO DAILY 01/21/23 01/21/23 History Allergies Allergy/AdvReac Type Severity Reaction Status Date / Time lisinopril Allergy Anaphylaxis Verified 01/21/23 22:40 Physical Exam Vitals: Vital Signs Temp Pulse Pulse Resp BP BP Pulse Ox 01/22/23 12:00 98 F 120 H 22 111/65 99 01/22/23 11:30 106 H 17 111/65 99 01/22/23 11:25 98 01/22/23 11:15 98 01/22/23 11:00 96 16 120/65 99 01/22/23 10:50 01/22/23 10:30 99 17 120/65 100 01/22/23 10:00 110 H 17 120/65 100 01/22/23 09:30 101 H 15 105/61 100 01/22/23 09:00 105 H 16 105/61 98 01/22/23 08:30 109 H 16 111/73 98 01/22/23 08:22 96 01/22/23 08:04 96 01/22/23 08:00 97.8 F 86 17 116/78 97 01/22/23 07:44 01/22/23 07:30 90 18 116/78 98 01/22/23 07:00 93 18 109/67 98 01/22/23 06:30 95 19 120/71 98 01/22/23 06:00 105 H 16 101/60 97 01/22/23 05:30 101 H 16 94/54 98 01/22/23 05:00 109 H 15 110/65 97 01/22/23 04:49 01/22/23 04:30 109 H 15 102/61 98 01/22/23 04:01 97.7 F 112 H 13 115/67 98 01/22/23 03:53 01/22/23 03:40 92 01/22/23 03:30 90 15 121/75 98 01/22/23 03:29 90 01/22/23 03:27 01/22/23 03:00 92 105/52 96 01/22/23 02:30 90 18 85/54 96 01/22/23 02:00 100 20 101/52 95 01/22/23 01:30 105 H 19 80/44 95 01/22/23 01:16 98.2 F 105 H 19 80/44 96 01/22/23 01:00 105 H 27 H 75/38 96 01/22/23 00:46 01/22/23 00:30 120 H 26 H 93 L 01/22/23 00:13 98.4 F 103 H 17 87/44 96 01/22/23 00:00 98.2 F 122 H 30 H 101/52 98 01/21/23 23:30 118 H 18 138/67 97 01/21/23 23:20 120 H 18 136/76 97 01/21/23 23:10 122 H 20 132/73 96 01/21/23 22:53 01/21/23 22:45 123 H 26 H 138/67 97 01/21/23 22:23 01/21/23 22:22 01/21/23 22:00 134 H 16 131/68 98 01/21/23 21:53 128 H 24 155/66 98 01/21/23 21:33 124 H 26 H 138/100 96 01/21/23 21:30 115 H 14 137/84 97 01/21/23 21:27 115 H 22 137/84 98 01/21/23 21:20 28 H 99 FiO2 01/22/23 12:00 50 01/22/23 11:30 01/22/23 11:25 01/22/23 11:15 01/22/23 11:00 01/22/23 10:50 50 01/22/23 10:30 01/22/23 10:00 01/22/23 09:30 01/22/23 09:00 01/22/23 08:30 01/22/23 08:22 01/22/23 08:04 01/22/23 08:00 50 01/22/23 07:44 50 01/22/23 07:30 01/22/23 07:00 01/22/23 06:30 01/22/23 06:00 50 01/22/23 05:30 01/22/23 05:00 50 01/22/23 04:49 50 01/22/23 04:30 60 01/22/23 04:01 60 01/22/23 03:53 70 01/22/23 03:40 01/22/23 03:30 01/22/23 03:29 01/22/23 03:27 60 01/22/23 03:00 70 01/22/23 02:30 01/22/23 02:00 70 01/22/23 01:30 01/22/23 01:16 70 01/22/23 01:00 01/22/23 00:46 70 01/22/23 00:30 01/22/23 00:13 70 01/22/23 00:00 70 01/21/23 23:30 01/21/23 23:20 01/21/23 23:10 01/21/23 22:53 70 01/21/23 22:45 01/21/23 22:23 100 01/21/23 22:22 100 01/21/23 22:00 01/21/23 21:53 01/21/23 21:33 01/21/23 21:30 01/21/23 21:27 01/21/23 21:20 Intake and Output 01/21/23 01/22/23 01/22/23 22:59 06:59 14:59 Intake Total 2286.149 428.778 Output Total 810 485 Balance 1476.149 -56.222 Intake: IV 2075 75 Magnesium Sulfate-D5w Pmx 200 1 gm In Dextrose/Water 1 100ml.bag @ 100 mls/hr IVPB Q1H REPLACED BY [facility] Rx#: [id number] Sodium Chloride 0.9% 1, 375 75 000 ml @ 75 mls/hr IV . [id number] REPLACED BY [facility] Rx#:[id number] Sodium Chloride 0.9% 1, 1000 000 ml @ 999 mls/hr IV . Q1H1M ONE Rx#:[id number] Sodium Chloride 0.9% 500 500 ml 500 ml @ 999 mls/hr IV .Q31M ONE Rx#:[id number] Intake, IV Titration 211.149 353.778 Amount Dextrose 5% in Water 1, 75 000 ml @ 75 mls/hr IV . [id number] JENNIFER with Sodium Bicarb (1 Meq/ml) 150 ml Rx#:[id number] Lactated Ringers 1,000 ml 225 @ 75 mls/hr IV .[id number] REPLACED BY [facility] Rx#:[id number] propofoL 1,000 mg In 211.149 53.778 Empty Bag 1 bag @ 15 MCG/ KG/MIN 7.757 mls/hr IV . [id number] REPLACED BY [facility] Rx#:[id number] Output: Urine 810 485 Other: Voiding Method Indwelling Catheter Indwelling Catheter Weight 86.183 kg 91.4 kg In general patient is intubated sedated maintained on mechanical ventilation HEENT head normocephalic and atraumatic Neck is supple no JVD no goiter no lymphadenopathy no carotid bruit Chest examination is clear to auscultation no crackles no wheezing Cardiac exam reveals regular heart sounds S1 and S2 no gallops no murmurs Abdomen is soft nontender no organomegaly with normal bowel sounds Extremity exam reveals no edema no cyanosis or clubbing Neurological examination reveals no gross focal deficits Results CBC & Chem 7: 01/22/23 05:29 01/22/23 08:31 Labs: Abnormal Lab Results - Last 24 Hours (Table) 01/21/23 01/21/23 01/21/23 Range/Units 21:24 21:24 22:40 RBC 3.67 L (3.80-5.40) m/uL Hgb (11.4-16.0) gm/dL Hct (34.0-46.0) % MCV (80.0-100.0) fL Neutrophils # (1.3-7.7) k/uL Lymphocytes # (1.0-4.8) k/uL ABG pH 7.08 L* (7.35-7.45) ABG pCO2 57 H (35-45) mmHg ABG pO2 263 H (83-108) mmHg ABG HCO3 17 L (21-25) mmol/L ABG Total CO2 18 L (19-24) mmol/L ABG O2 Saturation 99.2 H (94-97) % Chloride 111 H (98-107) mmol/L Carbon Dioxide 20 L (22-30) mmol/L BUN 19 H (7-17) mg/dL Creatinine 1.38 H (0.52-1.04) mg/dL Glucose 154 H (74-99) mg/dL POC Glucose (mg/dL) (70-110) mg/dL Calcium 8.0 L (8.4-10.2) mg/dL Magnesium (1.6-2.3) mg/dL AST 38 H (14-36) U/L 01/22/23 01/22/23 01/22/23 Range/Units 00:06 00:39 00:39 RBC 3.26 L (3.80-5.40) m/uL Hgb 10.9 L (11.4-16.0) gm/dL Hct 33.1 L (34.0-46.0) % MCV 101.7 H (80.0-100.0) fL Neutrophils # 9.8 H (1.3-7.7) k/uL Lymphocytes # 0.4 L (1.0-4.8) k/uL ABG pH (7.35-7.45) ABG pCO2 (35-45) mmHg ABG pO2 (83-108) mmHg ABG HCO3 (21-25) mmol/L ABG Total CO2 (19-24) mmol/L ABG O2 Saturation (94-97) % Chloride 110 H (98-107) mmol/L Carbon Dioxide 16 L (22-30) mmol/L BUN 19 H (7-17) mg/dL Creatinine 1.36 H (0.52-1.04) mg/dL Glucose 304 H (74-99) mg/dL POC Glucose (mg/dL) 287 H (70-110) mg/dL Calcium 7.2 L (8.4-10.2) mg/dL Magnesium 1.4 L (1.6-2.3) mg/dL AST (14-36) U/L 01/22/23 01/22/23 01/22/23 Range/Units 00:56 04:45 05:29 RBC 3.05 L (3.80-5.40) m/uL Hgb 10.2 L (11.4-16.0) gm/dL Hct 31.5 L (34.0-46.0) % MCV 103.2 H (80.0-100.0) fL Neutrophils # (1.3-7.7) k/uL Lymphocytes # 0.4 L (1.0-4.8) k/uL ABG pH 7.25 L 7.26 L (7.35-7.45) ABG pCO2 (35-45) mmHg ABG pO2 175 H (83-108) mmHg ABG HCO3 18 L 18 L (21-25) mmol/L ABG Total CO2 (19-24) mmol/L ABG O2 Saturation 99.8 H (94-97) % Chloride (98-107) mmol/L Carbon Dioxide (22-30) mmol/L BUN (7-17) mg/dL Creatinine (0.52-1.04) mg/dL Glucose (74-99) mg/dL POC Glucose (mg/dL) (70-110) mg/dL Calcium (8.4-10.2) mg/dL Magnesium (1.6-2.3) mg/dL AST (14-36) U/L 01/22/23 01/22/23 01/22/23 Range/Units 05:29 05:49 11:48 RBC (3.80-5.40) m/uL Hgb (11.4-16.0) gm/dL Hct (34.0-46.0) % MCV (80.0-100.0) fL Neutrophils # (1.3-7.7) k/uL Lymphocytes # (1.0-4.8) k/uL ABG pH (7.35-7.45) ABG pCO2 (35-45) mmHg ABG pO2 (83-108) mmHg ABG HCO3 (21-25) mmol/L ABG Total CO2 (19-24) mmol/L ABG O2 Saturation (94-97) % Chloride 113 H (98-107) mmol/L Carbon Dioxide 14 L (22-30) mmol/L BUN 18 H (7-17) mg/dL Creatinine 1.34 H (0.52-1.04) mg/dL Glucose 264 H (74-99) mg/dL POC Glucose (mg/dL) 255 H 217 H (70-110) mg/dL Calcium 6.8 L (8.4-10.2) mg/dL Magnesium (1.6-2.3) mg/dL AST (14-36) U/L Assessment and Plan Plan: ALLERGIC reaction with angioedema possibly related to OLMAN inhibitor Anaphylactic shock with hypotension, received multiple IV fluid boluses Acute hypoxemic and hypercapnic respiratory failure requiring intubation and mechanical ventilation started in the emergency room Underlying history of hypertension Underlying history of ehc-rysogan-lequnqzdw diabetes mellitus Underlying history of chronic myelocytic leukemia maintained on Gleevec Underlying history of chronic kidney disease stage III Underlying history of morbid obesity At this time patient is admitted to intensive care unit She is intubated sedated maintained on mechanical ventilation She is receiving IV fluid, IV Solu-Medrol, and Benadryl For DVT prophylaxis subcu Lovenox Pulmonary critical care following Will follow closely
[2023-01-22] MEDS: POTASSIUM BICARBONATE/CIT AC 20 MEQ TABLET.EFF NG-TUBE SCH ×2 (20:59→22:11)
[2023-01-23] MEDS: POTASSIUM BICARBONATE/CIT AC 20 MEQ TABLET.EFF PO SCH ×2 (02:00→03:00)
[2023-01-23] MEDS: atenoloL 50 MG TAB PO SCH ×2 (02:00→10:00)
[2023-01-23] MEDS: DEXTROSE 5% IN WATER 1,000 ML with SODIUM BICARB (1 MEQ/ML) 150 ML IV SCH (02:00)
[2023-01-23] MEDS ORDERED: ACETAMINOPHEN TAB 325 MG TAB PO PRN (02:20)
[2023-01-23] MEDS ORDERED: ACETAMINOPHEN TAB 325 MG TAB ONE (03:02)
[2023-01-23] MEDS: LORazepam 2 MG/ML INJ IV PRN ×2 (03:12→14:37)
[2023-01-23 05:21] LABS: ABG PCO2 40 mmHg (35-45); ABG PH 7.39 (7.35-7.45); ABG PO2 80 mmHg (83-108); Allen Test Performed? Yes
[2023-01-23 05:29] LABS: Glucose,Whole Blood 283 mg/dL (70-110)
[2023-01-23 05:39] LABS: Glucose,Whole Blood 289 mg/dL (70-110)
[2023-01-23 05:56] LABS: Glucose,Whole Blood 303 mg/dL (70-110)
[2023-01-23] MEDS: INSULIN ASPART (NovoLOG) 100 UNIT/ML VIAL SQ SCH ×4 (06:04→23:05)
[2023-01-23] MEDS: POTASSIUM BICARBONATE/CIT AC 20 MEQ TABLET.EFF NG-TUBE SCH (06:09)
[2023-01-23] MEDS: methylPREDNISolone SOD SUCCI 125 MG/2 ML VIAL IV SCH ×4 (06:10→23:05)
[2023-01-23] MEDS: IPRATROPIUM-ALBUTEROL 3 ML NEB INHALATION SCH ×5 (06:10→20:50)
[2023-01-23] MEDS: diphenhydrAMINE 50 MG/ML 1 ML VIAL IVP SCH ×4 (06:10→23:05)
[2023-01-23 06:12] LABS: Basophils % (A) 0 %; Eosinophils % (A) 0 %; HCT 30.2 % (34.0-46.0); HGB 10.1 gm/dL (11.4-16.0); Hypochromasia Slight; Lymphocytes # (A) 0.4 k/uL (1.0-4.8); Lymphocytes % (A) 5 %; MCH 34.4 pg (25.0-35.0); MCHC 33.3 g/dL (31.0-37.0); MCV 103.4 fL (80.0-100.0); Macrocytosis Slight; Mean Platelet Volume 7.8; Monocytes # (A) 0.3 k/uL (0-1.0); Monocytes % (A) 3 %; Neutrophils # (A) 8.4 k/uL (1.3-7.7); Neutrophils % (A) 91 %; Platelet Count 172 k/uL (150-450); RBC 2.92 m/uL (3.80-5.40); RDW 14.2 % (11.5-15.5); WBC 9.2 k/uL (3.8-10.6)
[2023-01-23 06:15] LABS: African American GFR (CKD) 61 (>60 ml/min/1.73 sqM); Anion Gap 9 mmol/L; Blood Urea Nitrogen 16 mg/dL (7-17); Calcium 6.8 mg/dL (8.4-10.2); Carbon Dioxide 21 mmol/L (22-30); Chloride 108 mmol/L (98-107); Glucose 289 mg/dL (74-99); Non-African American GFR(CKD) 53 (>60 ml/min/1.73 sqM); Potassium 3.6 mmol/L (3.5-5.1); Sodium 138 mmol/L (137-145)
[2023-01-23] MEDS ORDERED: POTASSIUM BICARBONATE/CIT AC 20 MEQ TABLET.EFF NG-TUBE SCH ×2 (07:00→18:00)
--- NOTE | 2023-01-23 07:58 | XR ---
EXAMINATION TYPE: XR chest 1V portable DATE OF EXAM: 01/23/2023 COMPARISON: 01/22/2023 HISTORY: Tube placement TECHNIQUE: Single frontal view of the chest is obtained. FINDINGS: ET and NG tube are stable and in good position. Heart size stable and there is bilateral l ower lobe and 3 small effusion. No overt failure or pneumothorax. Osseous structures are stable IMPRESSION: Minimal bilateral lower lobe infiltrate and small effusion.
[2023-01-23] MEDS: HEPARIN SODIUM,PORCINE/PF 5,000 UNIT/0.5 ML SYRINGE SQ SCH ×3 (08:49→23:05)
[2023-01-23] MEDS: CHLORHEXIDINE GLUCONATE 15 ML CUP MUCOUS MEM SCH (08:50)
[2023-01-23] MEDS: FAMOTIDINE 20 MG/2 ML VIAL IV SCH (08:50)
--- NOTE | 2023-01-23 10:25 | P.PN ---
Subjective Progress Note Date: 01/23/23 I am seeing this patient in new consultation today 01/22/2023 following an ALLERGIC reaction and angioedema. Patient is a 52-year-old white female with past medical history significant for hypertension, diabetes mellitus type 2, chronic kidney disease, and CML. Patient is currently [facility] ventil[facility], and most of this HPI is collected from the patient's family members and chart. Patient's states that yesterday evening the patient started to experience some nausea, vomiting, diarrhea, followed by facial and tongue swelling. The patient's states that she has been taking blood pressure medication for the last 1-2 years, but was unsure if Lisinopril was a new medication. Denies the patient trying any new foods or prior ALLERGIC reactions. EMS was called and the patient was administered an EpiPen on the scene. Patient also was given IV Solu-Medrol and Benadryl. The patient was taken to the emergency room last night, and required rapid sequence intubation for airway protection. Post intubation chest x-ray shows endotracheal tube approximately 3 cm from the manjula, possible mild infiltrate or more likely atelectasis in the left lung base, and an orogastric tube coursing below the diaphragm. Patient is currently in the intensive care unit, intubated, and synchronous with the mechanical ventilator. Current ventilator settings are assist control, respiratory rate 16, tidal volume 350, FiO2 70%, and PEEP of 5. Most recent ABG show a pO2 of 86, pCO2 of 41, pH of 7.25. Propofol is currently infusing at 60 mcg/kg/m for sedation. While in the emergency room, the patient did receive a dose of TXA and IM epinephrine. Patient is currently hypotensive and tachycardic. The patient will be given additional fluids. No vasopressors are currently infusing. CBC on arrival was unremarkable. BMP on arrival shows a sodium 138, potassium 3.5, chloride 111, serum CO2 20, BUN 19, creatinine 1.3, glucose 154. Patient will be monitored in the intensive care unit. On today's evaluation of 01/23/2023, the patient remains intubated on a mechanical ventilator. The patient was intubated for airway protection as the patient had angioedema. This was induced by OLMAN inhibitor. This morning, she remains on propofol running at 20 mcg/kg/m. She is on IV fluid at 75 mL an hour. She is receiving IV Solu-Medrol and IV Benadryl. She remains on assist-control mode of mechanical ventilation at the rate of 16, tidal volume of 400, FiO2 of 40% with a PEEP of 5. Peak airway pressure is 25. The chest x-ray from today shows no acute abnormalities. Orotracheal tube is in a good location. NG tube is in a good location. Noted the patient is intubated via #6 orotracheal tube. Blood gas from today shows a pH of 7.39 with episodes of 40 and pO2 of 80. BUN is at 60 with a creatinine of 1.2 and a sodium level is at 138. Patient's blood sugar is also elevated at 289. The risk was at 9.2 with a hemoglobin of 10.5. No other significant events overnight. She is known to have history of CML. He is Objective - Vital Signs Vital signs: Vital Signs Temp 98.6 F 01/23/23 08:00 Pulse 122 H 01/23/23 09:00 Resp 24 01/23/23 09:00 BP 103/56 01/23/23 09:00 Pulse Ox 92 L 01/23/23 09:00 FiO2 40 01/23/23 08:00 Intake & Output 01/22/23 01/23/23 01/23/23 18:59 06:59 18:59 Intake Total 2559.561 1037.663 266.088 Output Total 885 875 75 Balance 187.373 452.663 191.088 Weight 91 kg Intake: IV 75 900 150 Dextrose 5% in Water 1, 900 150 000 ml @ 75 mls/hr IV . [id number] JENNIFER with Sodium Bicarb (1 Meq/ml) 150 ml Rx#:[id number] Sodium Chloride 0.9% 1, 75 000 ml @ 75 mls/hr IV . [id number] JENN[facility]ER Rx#:[id number] Intake, IV Titration 997.373 427.663 116.088 Amount Dextrose 5% in Water 1, 525 75 000 ml @ 75 mls/hr IV . [id number] JENNIFER with Sodium Bicarb (1 Meq/ml) 150 ml Rx#:[id number] Lactated Ringers 1,000 ml 225 @ 75 mls/hr IV .[id number] JENN[facility]ER Rx#:[id number] propofoL 1,000 mg In 247.373 352.663 116.088 Empty Bag 1 bag @ 15 MCG/ KG/MIN 7.757 mls/hr IV . [id number] JENNIFER Rx#:[id number] Output: Urine 885 875 75 Other: Voiding Method Indwelling Catheter Indwelling Catheter Indwelling Catheter - Exam GENERAL EXAM: 52-year-old, obese white female, sedated and synchronous with mechanical ventilator. HEAD: Normocephalic and atraumatic. There is facial swelling and obvious swelling of the tongue. EYES: Normal reaction of pupils, equal size. NOSE: Clear with pink turbinates. THROAT: No erythema or exudates. NECK: No masses, no JVD. CHEST: No chest wall deformity. LUNGS: Equal air entry with minimal wheezing. no crackles, rhonchi or dullness. Intubated to mechanical ventilator CVS: S1 and S2 normal with no audible murmur, regular rhythm. No extra heart sounds. Heart rate is tachycardic ABDOMEN: Obese abdomen. No hepatosplenomegaly, active bowel sounds, no guarding or rigidity. SPINE: No scoliosis or deformity SKIN: No rashes CENTRAL NERVOUS SYSTEM: No focal deficits, tone is normal in all 4 extremities. EXTREMITIES: There is no peripheral edema, clubbing, or cyanosis. Peripheral pulses are intact. - Labs CBC & Chem 7: 01/23/23 05:40 01/23/23 09:32 Labs: Abnormal Lab Results - Last 24 Hours (Table) 01/22/23 01/22/23 01/22/23 Range/Units 11:48 18:20 19:50 RBC (3.80-5.40) m/uL Hgb (11.4-16.0) gm/dL Hct (34.0-46.0) % MCV (80.0-100.0) fL Neutrophils # (1.3-7.7) k/uL Lymphocytes # (1.0-4.8) k/uL ABG pO2 (83-108) mmHg ABG O2 Saturation (94-97) % Potassium 3.4 L (3.5-5.1) mmol/L Chloride (98-107) mmol/L Carbon Dioxide (22-30) mmol/L Creatinine (0.52-1.04) mg/dL Glucose (74-99) mg/dL POC Glucose (mg/dL) 217 H 251 H (70-110) mg/dL Calcium (8.4-10.2) mg/dL 01/22/23 01/23/23 01/23/23 Range/Units 23:10 00:36 05:33 RBC (3.80-5.40) m/uL Hgb (11.4-16.0) gm/dL Hct (34.0-46.0) % MCV (80.0-100.0) fL Neutrophils # (1.3-7.7) k/uL Lymphocytes # (1.0-4.8) k/uL ABG pO2 80 L (83-108) mmHg ABG O2 Saturation 98.0 H (94-97) % Potassium 3.4 L (3.5-5.1) mmol/L Chloride (98-107) mmol/L Carbon Dioxide (22-30) mmol/L Creatinine (0.52-1.04) mg/dL Glucose (74-99) mg/dL POC Glucose (mg/dL) 283 H (70-110) mg/dL Calcium (8.4-10.2) mg/dL 01/23/23 01/23/23 01/23/23 Range/Units 05:38 05:40 05:40 RBC 2.92 L (3.80-5.40) m/uL Hgb 10.1 L (11.4-16.0) gm/dL Hct 30.2 L (34.0-46.0) % MCV 103.4 H (80.0-100.0) fL Neutrophils # 8.4 H (1.3-7.7) k/uL Lymphocytes # 0.4 L (1.0-4.8) k/uL ABG pO2 (83-108) mmHg ABG O2 Saturation (94-97) % Potassium (3.5-5.1) mmol/L Chloride 108 H (98-107) mmol/L Carbon Dioxide 21 L (22-30) mmol/L Creatinine 1.21 H (0.52-1.04) mg/dL Glucose 289 H (74-99) mg/dL POC Glucose (mg/dL) 289 H (70-110) mg/dL Calcium 6.8 L (8.4-10.2) mg/dL 01/23/23 Range/Units 05:54 RBC (3.80-5.40) m/uL Hgb (11.4-16.0) gm/dL Hct (34.0-46.0) % MCV (80.0-100.0) fL Neutrophils # (1.3-7.7) k/uL Lymphocytes # (1.0-4.8) k/uL ABG pO2 (83-108) mmHg ABG O2 Saturation (94-97) % Potassium (3.5-5.1) mmol/L Chloride (98-107) mmol/L Carbon Dioxide (22-30) mmol/L Creatinine (0.52-1.04) mg/dL Glucose (74-99) mg/dL POC Glucose (mg/dL) 303 H (70-110) mg/dL Calcium (8.4-10.2) mg/dL Microbiology - Last 24 Hours (Table) 01/22/23 00:59 Gram Stain - Preliminary Sputum Assessment and Plan Assessment: Angioedema possibly related to lisinopril, patient was treated with IM epinephr ine, Solu-Medrol, Benadryl, and was given a dose of TXA. Patient is intubated on a mechanical ventilator. Swelling is improved on today's evaluation. We'll proceed with a cuff leak test and if there is adequately, we'll proceed with weaning trial and possible extubation. Acute hypoxemic and hypercapnic respiratory failure secondary to above, currently intubated to the mechanical ventilator Hypotension and possible anaphylactic shock, currently receiving fluid resuscitation. No need for vasopressors at the moment, the patient is hemodynamically stable Essential hypertension Diabetes mellitus type 2, hqh-zsfiixl-kdtzrcsyf, there is a component of steroid-induced hyperglycemia Chronic kidney disease stage III CML currently being treated with Gleevec Obesity, with a BMI of 37 An anion gap metabolic acidosis and the patient is improved and serum bicarbs of 21. The patient continues to be on a bicarb infusion at the rate of 75 mL an hour. Plan: Swelling of the tongue of the lip is improved. Noted the patient has features of obstructive sleep apnea and she had compromised airway which probably got worse after she developed angioedema the patient to be intubated and placed on a mechanical ventilator. Since then, the patient was treated with combination of medications including steroids. The cough leak test was positive and the patient had significant amount of leaks around the 2. Based on that, I made the decision to extubate this patient today. We'll stop the sedation. Patient is awake for now. We'll proceed with extubation. Use BiPAP if needed. Continue Solu-Medrol for another 24 hours. We'll continue to follow. We'll switch her IV fluids to normal saline at rate of 75 mL an hour. He is 1 cm there is any We'll continue to follow. Condition is critical at this point in time. Evaluation was done> 30min Time with Patient: Greater than 30
[2023-01-23] MEDS ORDERED: guaiFENesin SYRUP 100MG/5ML 200 MG/10 ML CUP PO PRN (11:24)
[2023-01-23 11:31] LABS: Glucose,Whole Blood 233 mg/dL (70-110)
--- NOTE | 2023-01-23 11:40 | P.PN ---
Subjective Progress Note Date: 01/23/23 Faustino Kelly, is a 52-year-old female who presented to [facility] emergency room with a chief complaint of nausea or vomiting and facial and tongue swelling. She was evaluated in the emergency room patient started having difficulty breathing and underwent intubation and was started on mechanical ventilation in the emergency room patient was admitted to intensive care unit. Pulmonary consultation was requested. Patient has a known history of hypertension she has been maintained on multiple blood pressure medications including atenolol and lisinopril, she also has a known history of chronic myelocytic leukemia, history of kidney stones, history of anx-mypuwob-zaybcdowu diabetes mellitus, and history of anxiety with panic disorder. On 2119.3 patient is alert and oriented 3 patient has been extubated remains in the intensive care unit. Family at bedside. Patient currently on 5 L cannula. At this time patient denies chest pain or shortness of breath. Patient denies nausea vomiting or diarrhea. Patient denies any urinary burning or frequency patient remains on IV steroids Objective - Vital Signs Vital signs: Vital Signs Temp 98.6 F 01/23/23 08:00 Pulse 123 H 01/23/23 11:22 Resp 23 01/23/23 11:00 BP 109/60 01/23/23 11:00 Pulse Ox 91 L 01/23/23 11:00 FiO2 40 01/23/23 08:00 Intake & Output 01/22/23 01/23/23 01/23/23 18:59 06:59 18:59 Intake Total 3471.113 8638.663 268.415 Output Total 885 875 75 Balance 187.373 452.663 193.415 Weight 91 kg Intake: IV 75 900 150 Dextrose 5% in Water 1, 900 150 000 ml @ 75 mls/hr IV . [id number] JENNIFER with Sodium Bicarb (1 Meq/ml) 150 ml Rx#:[id number] Sodium Chloride 0.9% 1, 75 000 ml @ 75 mls/hr IV . [id number] JENNIFER Rx#:[id number] Intake, IV Titration 997.373 427.663 118.415 Amount Dextrose 5% in Water 1, 525 75 000 ml @ 75 mls/hr IV . [id number] JENNIFER with Sodium Bicarb (1 Meq/ml) 150 ml Rx#:[id number] Lactated Ringers 1,000 ml 225 @ 75 mls/hr IV .[id number] JENNIFER Rx#:[id number] propofoL 1,000 mg In 247.373 352.663 118.415 Empty Bag 1 bag @ 15 MCG/ KG/MIN 7.757 mls/hr IV . [id number] [facility] Rx#:[id number] Output: Urine 885 875 75 Other: Voiding Method Indwelling Catheter Indwelling Catheter Indwelling Catheter - Exam In general patient is intubated sedated maintained on mechanical ventilation HEENT head normocephalic and atraumatic Neck is supple no JVD no goiter no lymphadenopathy no carotid bruit Chest examination is clear to auscultation no crackles no wheezing Cardiac exam reveals regular heart sounds S1 and S2 no gallops no murmurs Abdomen is soft nontender no organomegaly with normal bowel sounds Extremity exam reveals no edema no cyanosis or clubbing Neurological examination reveals no gross focal deficits - Labs CBC & Chem 7: 01/23/23 05:40 01/23/23 09:32 Labs: Abnormal Lab Results - Last 24 Hours (Table) 01/22/23 01/22/23 01/22/23 Range/Units 11:48 18:20 19:50 RBC (3.80-5.40) m/uL Hgb (11.4-16.0) gm/dL Hct (34.0-46.0) % MCV (80.0-100.0) fL Neutrophils # (1.3-7.7) k/uL Lymphocytes # (1.0-4.8) k/uL ABG pO2 (83-108) mmHg ABG O2 Saturation (94-97) % Potassium 3.4 L (3.5-5.1) mmol/L Chloride (98-107) mmol/L Carbon Dioxide (22-30) mmol/L Creatinine (0.52-1.04) mg/dL Glucose (74-99) mg/dL POC Glucose (mg/dL) 217 H 251 H (70-110) mg/dL Calcium (8.4-10.2) mg/dL 01/22/23 01/23/23 01/23/23 Range/Units 23:10 00:36 05:33 RBC (3.80-5.40) m/uL Hgb (11.4-16.0) gm/dL Hct (34.0-46.0) % MCV (80.0-100.0) fL Neutrophils # (1.3-7.7) k/uL Lymphocytes # (1.0-4.8) k/uL ABG pO2 80 L (83-108) mmHg ABG O2 Saturation 98.0 H (94-97) % Potassium 3.4 L (3.5-5.1) mmol/L Chloride (98-107) mmol/L Carbon Dioxide (22-30) mmol/L Creatinine (0.52-1.04) mg/dL Glucose (74-99) mg/dL POC Glucose (mg/dL) 283 H (70-110) mg/dL Calcium (8.4-10.2) mg/dL 01/23/23 01/23/23 01/23/23 Range/Units 05:38 05:40 05:40 RBC 2.92 L (3.80-5.40) m/uL Hgb 10.1 L (11.4-16.0) gm/dL Hct 30.2 L (34.0-46.0) % MCV 103.4 H (80.0-100.0) fL Neutrophils # 8.4 H (1.3-7.7) k/uL Lymphocytes # 0.4 L (1.0-4.8) k/uL ABG pO2 (83-108) mmHg ABG O2 Saturation (94-97) % Potassium (3.5-5.1) mmol/L Chloride 108 H (98-107) mmol/L Carbon Dioxide 21 L (22-30) mmol/L Creatinine 1.21 H (0.52-1.04) mg/dL Glucose 289 H (74-99) mg/dL POC Glucose (mg/dL) 289 H (70-110) mg/dL Calcium 6.8 L (8.4-10.2) mg/dL 01/23/23 01/23/23 Range/Units 05:54 11:30 RBC (3.80-5.40) m/uL Hgb (11.4-16.0) gm/dL Hct (34.0-46.0) % MCV (80.0-100.0) fL Neutrophils # (1.3-7.7) k/uL Lymphocytes # (1.0-4.8) k/uL ABG pO2 (83-108) mmHg ABG O2 Saturation (94-97) % Potassium (3.5-5.1) mmol/L Chloride (98-107) mmol/L Carbon Dioxide (22-30) mmol/L Creatinine (0.52-1.04) mg/dL Glucose (74-99) mg/dL POC Glucose (mg/dL) 303 H 233 H (70-110) mg/dL Calcium (8.4-10.2) mg/dL Microbiology - Last 24 Hours (Table) 01/22/23 00:59 Gram Stain - Preliminary Sputum Assessment and Plan Plan: ALLERGIC reaction with angioedema possibly related to OLMAN inhibitor Anaphylactic shock with hypotension, received multiple IV fluid boluses Acute hypoxemic and hypercapnic respiratory failure requiring intubation and mechanical ventilation started in the emergency room Underlying history of hypertension Underlying history of rdg-dycpwcg-zgrtasond diabetes mellitus Underlying history of chronic myelocytic leukemia maintained on Gleevec Underlying history of chronic kidney disease stage III Underlying history of morbid obesity At this time patient is admitted to intensive care unit Patient extubated on 01/23/2023 She is receiving IV fluid, IV Solu-Medrol, and Benadryl For DVT prophylaxis subcu Lovenox Pulmonary critical care following Will follow closely
[2023-01-23] MEDS: SODIUM CHLORIDE 0.9% 1,000 ML IV SCH (12:51)
--- NOTE | 2023-01-23 12:59 | P.CONS ---
History of Present Illness - Reason for Consult Consult date: 01/23/23 hx CML Requesting physician: Sadi Stern - Chief Complaint allergic reaction - History of Present Illness Patient is a 52-year-old female with past medical history of CML. She is a patient of Dr. Ly. She has been on Gleevac since diagnose since 2004 with remission of disease. Patient presented to the ER with tongue swelling. She was administered an EpiPen [employer], and was also given 125 of Solu-Medrol and 50 mg of Benadryl. Of note patient does take lisinopril and has been on this medication for several years. At todays visit patient is in the ICU, ventilated and on sedation. HPI limited due to patients acute condition. Vitals stable. Review of Systems 10 point ROS is negative except as stated in the HPI Past Medical History Past Medical History: Cancer, Diabetes Mellitus, Hypertension Additional Past Medical History / Comment(s): leukemia 2004, kidney stones 2014 History of Any Multi-Drug Resistant Organisms: None Reported Past Surgical History: Tubal Ligation Additional Past Surgical History / Comment(s): lithrotripsy 2014, bone marrow biopsy 2004 Past Anesthesia/Blood Transfusion Reactions: No Reported Reaction Past Psychological History: Anxiety, Panic Disorder Smoking Status: Never smoker Past Alcohol Use History: None Reported Past Drug Use History: None Reported - Past Family History Mother Family Medical History: Diabetes Mellitus Medications and Allergies Home Medications Medication Instructions Recorded Confirmed Type atenoloL [Atenolol] 50 mg PO DAILY 07/08/15 01/21/23 History Imatinib Mesylate [Gleevec] 400 mg PO DAILY 03/25/17 01/21/23 History Escitalopram [Lexapro] 5 mg PO DAILY 01/21/23 01/21/23 History Triamcinolone 0.1% Ointment 1 applic TOPICAL BID 01/21/23 01/21/23 History [Kenalog 0.1% Ointment] metFORMIN HCL [Glucophage] 500 mg PO DAILY 01/21/23 01/21/23 History Allergies Allergy/AdvReac Type Severity Reaction Status Date / Time lisinopril Allergy Anaphylaxis Verified 01/21/23 22:40 Physical Exam Vitals: Vital Signs Temp Pulse Resp BP Pulse Ox FiO2 01/23/23 11:22 123 H 01/23/23 11:07 122 H 01/23/23 11:00 122 H 23 109/60 91 L 06/21/23 10:00 120 H 21 102/55 92 L 01/23/23 09:00 122 H 24 103/56 92 L 01/23/23 08:16 105 H 01/23/23 08:09 107 H 01/23/23 08:00 98.6 F 105 H 22 107/64 93 L 40 01/23/23 07:22 40 01/23/23 07:00 106 H 20 100/61 93 L 01/23/23 06:00 110 H 21 100/61 95 01/23/23 05:00 112 H 19 101/59 97 01/23/23 04:00 98.3 F 115 H 14 110/66 97 40 01/23/23 03:00 117 H 18 107/62 95 01/23/23 02:00 121 H 16 105/58 97 50 01/23/23 01:00 115 H 19 118/68 96 01/23/23 00:00 98.3 F 105 H 16 110/63 99 50 01/22/23 23:00 107 H 16 108/61 97 01/22/23 22:00 110 H 18 117/72 97 01/22/23 21:40 108 H 01/22/23 21:25 101 H 01/22/23 21:19 50 01/22/23 21:00 105 H 18 120/69 97 01/22/23 20:00 98.9 F 105 H 18 126/72 100 50 01/22/23 19:00 116 H 17 109/58 100 01/22/23 18:00 109 H 16 107/56 98 01/22/23 17:00 112 H 17 110/57 99 01/22/23 16:00 98.3 F 120 H 21 117/64 99 50 01/22/23 15:44 108 H 01/22/23 15:33 109 H 01/22/23 15:24 50 01/22/23 15:00 98 14 111/67 99 01/22/23 14:00 113 H 18 109/64 99 01/22/23 13:00 107 H 17 129/67 100 Intake and Output 01/22/23 01/23/23 01/23/23 22:59 06:59 14:59 Intake Total 860.122 861.136 268.415 Output Total 745 380 75 Balance 115.122 481.136 193.415 Intake: IV 300 600 150 Dextrose 5% in Water 1, 300 600 150 000 ml @ 75 mls/hr IV . [id number] JENNIFER with Sodium Bicarb (1 Meq/ml) 150 ml Rx#:[id number] Intake, IV Titration 560.122 261.136 118.415 Amount Dextrose 5% in Water 1, 375 000 ml @ 75 mls/hr IV . [id number] JENNIFER with Sodium Bicarb (1 Meq/ml) 150 ml Rx#:[id number] propofoL 1,000 mg In 185.122 261.136 118.415 Empty Bag 1 bag @ 15 MCG/ KG/MIN 7.757 mls/hr IV . [id number] JENNIFER Rx#:[id number] Output: Urine 745 380 75 Other: Voiding Method Indwelling Catheter Indwelling Catheter Indwelling Catheter Weight 91 kg - Constitutional General appearance: average body habitus, no acute distress - Respiratory ventilated - Cardiovascular tachycardia Rhythm: regular Heart sounds: normal: S1, S2 Abnormal Heart Sounds: no systolic murmur, no diastolic murmur, no rub, no S3 Gallop, no S4 Gallop, no click, no other - Integumentary Integumentary: no cyanotic, no rash - Neurologic sedated, unresponsive Results CBC & Chem 7: 01/23/23 05:40 01/23/23 09:32 Labs: Abnormal Lab Results - Last 24 Hours (Table) 01/22/23 01/22/23 01/22/23 Range/Units 18:20 19:50 23:10 RBC (3.80-5.40) m/uL Hgb (11.4-16.0) gm/dL Hct (34.0-46.0) % MCV (80.0-100.0) fL Neutrophils # (1.3-7.7) k/uL Lymphocytes # (1.0-4.8) k/uL ABG pO2 (83-108) mmHg ABG O2 Saturation (94-97) % Potassium 3.4 L (3.5-5.1) mmol/L Chloride (98-107) mmol/L Carbon Dioxide (22-30) mmol/L Creatinine (0.52-1.04) mg/dL Glucose (74-99) mg/dL POC Glucose (mg/dL) 251 H 283 H (70-110) mg/dL Calcium (8.4-10.2) mg/dL 01/23/23 01/23/23 01/23/23 Range/Units 00:36 05:33 05:38 RBC (3.80-5.40) m/uL Hgb (11.4-16.0) gm/dL Hct (34.0-46.0) % MCV (80.0-100.0) fL Neutrophils # (1.3-7.7) k/uL Lymphocytes # (1.0-4.8) k/uL ABG pO2 80 L (83-108) mmHg ABG O2 Saturation 98.0 H (94-97) % Potassium 3.4 L (3.5-5.1) mmol/L Chloride (98-107) mmol/L Carbon Dioxide (22-30) mmol/L Creatinine (0.52-1.04) mg/dL Glucose (74-99) mg/dL POC Glucose (mg/dL) 289 H (70-110) mg/dL Calcium (8.4-10.2) mg/dL 01/23/23 01/23/23 01/23/23 Range/Units 05:40 05:40 05:54 RBC 2.92 L (3.80-5.40) m/uL Hgb 10.1 L (11.4-16.0) gm/dL Hct 30.2 L (34.0-46.0) % MCV 103.4 H (80.0-100.0) fL Neutrophils # 8.4 H (1.3-7.7) k/uL Lymphocytes # 0.4 L (1.0-4.8) k/uL ABG pO2 (83-108) mmHg ABG O2 Saturation (94-97) % Potassium (3.5-5.1) mmol/L Chloride 108 H (98-107) mmol/L Carbon Dioxide 21 L (22-30) mmol/L Creatinine 1.21 H (0.52-1.04) mg/dL Glucose 289 H (74-99) mg/dL POC Glucose (mg/dL) 303 H (70-110) mg/dL Calcium 6.8 L (8.4-10.2) mg/dL 01/23/23 Range/Units 11:30 RBC (3.80-5.40) m/uL Hgb (11.4-16.0) gm/dL Hct (34.0-46.0) % MCV (80.0-100.0) fL Neutrophils # (1.3-7.7) k/uL Lymphocytes # (1.0-4.8) k/uL ABG pO2 (83-108) mmHg ABG O2 Saturation (94-97) % Potassium (3.5-5.1) mmol/L Chloride (98-107) mmol/L Carbon Dioxide (22-30) mmol/L Creatinine (0.52-1.04) mg/dL Glucose (74-99) mg/dL POC Glucose (mg/dL) 233 H (70-110) mg/dL Calcium (8.4-10.2) mg/dL Microbiology - Last 24 Hours (Table) 01/22/23 00:59 Gram Stain - Preliminary Sputum Assessment and Plan (1) CML (chronic myelocytic leukemia) Current Visit: Yes Status: Acute Priority: Medium Code(s): C92.10 - CHRONIC MYELOID LEUK, BCR/ABL-POSITIVE, NOT ACHIEVE REMIS SNOMED Code(s): 42639089 (2) Angioedema Current Visit: Yes Status: Acute Priority: High Code(s): T78.3XXA - ANGIONEUROTIC EDEMA, INITIAL ENCOUNTER SNOMED Code(s): 81156899 Plan: CML: -History of CML. She is a patient of Dr. Ly. She has been on Gleevac since diagnose in 2004 with remission of disease. -Will hold Geelvac until patient acutely recovers. Unlikely this is an allergic reaction to Gleevac as patient has been on this for over 20 years without compl ications. Unless there was high suspicion the allergic reaction was caused by Gleevac, rather than patients other medications or other possible causative agents, we will continue Gleevac once patient recovers, as this has kept disease in remission for over 20 years. Will continue to monitor in the outpt setting for any potential side effects/allergic rxns Angioedema: -Continues on ventilation for airway protection. No angioedema/facial swelling noted on exam today. Plan is for extubation today. -Defer to pulmonology and IM team attests: I performed H&P and developed impression and plan of care for patient, discussed with dictator. I agree with dictated note, documented as a scribe
[2023-01-23 17:37] LABS: Glucose,Whole Blood 138 mg/dL (70-110)
[2023-01-23] MEDS: ESCITALOPRAM 5 MG TAB PO SCH (17:41)
[2023-01-23 20:25] LABS: Glucose,Whole Blood 212 mg/dL (70-110)
[2023-01-23 22:55] LABS: Glucose,Whole Blood 222 mg/dL (70-110)
[2023-01-24 05:08] LABS: Basophils % (A) 0 %; Eosinophils % (A) 0 %; HCT 29.7 % (34.0-46.0); HGB 9.6 gm/dL (11.4-16.0); Lymphocytes # (A) 0.6 k/uL (1.0-4.8); Lymphocytes % (A) 5 %; MCHC 32.3 g/dL (31.0-37.0); MCV 99.2 fL (80.0-100.0); Macrocytosis Slight; Mean Platelet Volume 8.1; Monocytes # (A) 0.2 k/uL (0-1.0); Monocytes % (A) 2 %; Neutrophils # (A) 11.1 k/uL (1.3-7.7); Neutrophils % (A) 92 %; Platelet Count 180 k/uL (150-450); RDW 14.7 % (11.5-15.5)
[2023-01-24 05:32] LABS: ALT 28 U/L (4-34); AST 43 U/L (14-36); African American GFR (CKD) 56 (>60 ml/min/1.73 sqM); Albumin 3.2 g/dL (3.5-5.0); Alkaline Phosphatase 44 U/L (38-126); Anion Gap 7 mmol/L; Blood Urea Nitrogen 25 mg/dL (7-17); Calcium 6.9 mg/dL (8.4-10.2); Carbon Dioxide 26 mmol/L (22-30); Chloride 103 mmol/L (98-107); Glucose 171 mg/dL (74-99); Non-African American GFR(CKD) 48 (>60 ml/min/1.73 sqM); Potassium 4.1 mmol/L (3.5-5.1); Sodium 136 mmol/L (137-145); Total Bilirubin 0.5 mg/dL (0.2-1.3); Total Protein 5.8 g/dL (6.3-8.2)
[2023-01-24] MEDS: methylPREDNISolone SOD SUCCI 125 MG/2 ML VIAL IV SCH (06:52)
[2023-01-24] MEDS: diphenhydrAMINE 50 MG/ML 1 ML VIAL IVP SCH (06:52)
[2023-01-24 07:12] LABS: Glucose,Whole Blood 168 mg/dL (70-110)
[2023-01-24] MEDS: INSULIN ASPART (NovoLOG) 100 UNIT/ML VIAL SQ SCH ×4 (07:23→21:27)
[2023-01-24] MEDS: IPRATROPIUM-ALBUTEROL 3 ML NEB INHALATION SCH ×4 (08:56→20:01)
[2023-01-24] MEDS: HEPARIN SODIUM,PORCINE/PF 5,000 UNIT/0.5 ML SYRINGE SQ SCH ×3 (09:02→23:43)
[2023-01-24] MEDS: ESCITALOPRAM 5 MG TAB PO SCH (09:04)
[2023-01-24] MEDS: FAMOTIDINE 20 MG/2 ML VIAL IV SCH (09:04)
[2023-01-24] MEDS: atenoloL 50 MG TAB PO SCH (09:04)
--- NOTE | 2023-01-24 10:17 | P.PN ---
Subjective Progress Note Date: 01/24/23 I am seeing this patient in new consultation today 01/22/2023 following an ALLERGIC reaction and angioedema. Patient is a 52-year-old white female with past medical history significant for hypertension, diabetes mellitus type 2, chronic kidney disease, and CML. Patient is currently intubated to the [facility] ventilator, and most of this HPI is collected from the patient's family members and chart. Patient's states that yesterday evening the patient started to experience some nausea, vomiting, diarrhea, followed by facial and tongue swelling. The patient's states that she has been taking blood pressure medication for the last 1-2 years, but was unsure if Lisinopril was a new medication. Denies the patient trying any new foods or prior ALLERGIC reactions. EMS was called and the patient was administered an EpiPen on the scene. Patient also was given IV Solu-Medrol and Benadryl. The patient was taken to the emergency room last night, and required rapid sequence intubation for airway protection. Post intubation chest x-ray shows endotracheal tube approximately 3 cm from the manjula, possible mild infiltrate or more likely atelectasis in the left lung base, and an orogastric tube coursing below the diaphragm. Patient is currently in the intensive care unit, intubated, and synchronous with the mechanical ventilator. Current ventilator settings are assist control, respiratory rate 16, tidal volume 350, FiO2 70%, and PEEP of 5. Most recent ABG show a pO2 of 86, pCO2 of 41, pH of 7.25. Propofol is currently infusing at 60 mcg/kg/m for sedation. While in the emergency room, the patient did receive a dose of TXA and IM epinephrine. Patient is currently hypotensive and tachycardic. The patient will be given additional fluids. No vasopressors are currently infusing. CBC on arrival was unremarkable. BMP on arrival shows a sodium 138, potassium 3.5, chloride 111, serum CO2 20, BUN 19, creatinine 1.3, glucose 154. Patient will be monitored in the intensive care unit. On today's evaluation of 01/23/2023, the patient remains intubated on a mechanical ventilator. The patient was intubated for airway protection as the patient had angioedema. This was induced by OLMAN inhibitor. This morning, she remains on propofol running at 20 mcg/kg/m. She is on IV fluid at 75 mL an hour. She is receiving IV Solu-Medrol and IV Benadryl. She remains on assist-control mode of mechanical ventilation at the rate of 16, tidal volume of 400, FiO2 of 40% with a PEEP of 5. Peak airway pressure is 25. The chest x-ray from today shows no acute abnormalities. Orotracheal tube is in a good location. NG tube is in a good location. Noted the patient is intubated via #6 orotracheal tube. Blood gas from today shows a pH of 7.39 with episodes of 40 and pO2 of 80. BUN is at 60 with a creatinine of 1.2 and a sodium level is at 138. Patient's blood sugar is also elevated at 289. The risk was at 9.2 with a hemoglobin of 10.5. No other significant events overnight. She is known to have history of CML. He is On 01/24/2023, the patient is awake and alert and communicating. She was weaned off the mechanical ventilator and she was extubated yesterday at 10:30 AM. No issues with stridor. No issues with difficulty breathing. She is currently on 3 L O2 nasal cannula. No issues with lip or tongue swelling. She remains on Benadryl and IV Solu-Medrol. Her blood pressure is under adequate control. Labs from today shows a WBC count of 12 with a hemoglobin of 9.6 and a platelet count of 180. BUN is at 25 with a creatinine of 1.3 and the sodium level is at 136. The patient has no specific complaints otherwise for now. Objective - Vital Signs Vital signs: Vital Signs Temp 98.5 F 01/24/23 08:00 Pulse 87 01/24/23 09:07 Resp 18 01/24/23 08:00 BP 132/79 01/24/23 08:00 Pulse Ox 93 L 01/24/23 08:58 FiO2 40 01/23/23 08:00 Intake & Output 01/23/23 01/24/23 01/24/23 18:59 06:59 18:59 Intake Total 943.415 300 Output Total 435 780 450 Balance 508.415 -480 -450 Weight 90.7 kg Intake: IV 825 300 Dextrose 5% in Water 1, 150 000 ml @ 75 mls/hr IV . [id number] JENNIFER with Sodium Bicarb (1 Meq/ml) 150 ml Rx#:[id number] Sodium Chloride 0.9% 1, 675 300 000 ml @ 75 mls/hr IV . [id number] [facility] Rx#:[id number] Intake, IV Titration 118.415 Amount propofoL 1,000 mg In 118.415 Empty Bag 1 bag @ 15 MCG/ KG/MIN 7.757 mls/hr IV . [id number] JENN[facility]ER Rx#:[id number] Output: Urine 435 780 450 Other: Voiding Method Indwelling Catheter Toilet Toilet # Voids 0 0 - Exam GENERAL EXAM: 52-year-old, obese white female, patient has been extubated to 3 L of oxygen by nasal cannula. HEAD: Normocephalic and atraumatic. There is No facial swelling and obvious swelling of the tongue. EYES: Normal reaction of pupils, equal size. NOSE: Clear with pink turbinates. THROAT: No erythema or exudates. NECK: No masses, no JVD. CHEST: No chest wall deformity. LUNGS: Equal air entry with minimal wheezing. no crackles, rhonchi or dullness. Intubated to mechanical ventilator CVS: S1 and S2 normal with no audible murmur, regular rhythm. No extra heart sounds. Heart rate is tachycardic ABDOMEN: Obese abdomen. No hepatosplenomegaly, active bowel sounds, no guarding or rigidity. SPINE: No scoliosis or deformity SKIN: No rashes CENTRAL NERVOUS SYSTEM: No focal deficits, tone is normal in all 4 extremities. EXTREMITIES: There is no peripheral edema, clubbing, or cyanosis. Peripheral pulses are intact. - Labs CBC & Chem 7: 01/24/23 04:50 01/24/23 04:50 Labs: Abnormal Lab Results - Last 24 Hours (Table) 01/23/23 01/23/23 01/23/23 Range/Units 11:30 17:36 20:24 WBC (3.8-10.6) k/uL RBC (3.80-5.40) m/uL Hgb (11.4-16.0) gm/dL Hct (34.0-46.0) % Neutrophils # (1.3-7.7) k/uL Lymphocytes # (1.0-4.8) k/uL Sodium (137-145) mmol/L BUN (7-17) mg/dL Creatinine (0.52-1.04) mg/dL Glucose (74-99) mg/dL POC Glucose (mg/dL) 233 H 138 H 212 H (70-110) mg/dL Calcium (8.4-10.2) mg/dL AST (14-36) U/L Total Protein (6.3-8.2) g/dL Albumin (3.5-5.0) g/dL 01/23/23 01/24/23 01/24/23 Range/Units 22:54 04:50 04:50 WBC 12.0 H (3.8-10.6) k/uL RBC 3.00 L (3.80-5.40) m/uL Hgb 9.6 L (11.4-16.0) gm/dL Hct 29.7 L (34.0-46.0) % Neutrophils # 11.1 H (1.3-7.7) k/uL Lymphocytes # 0.6 L (1.0-4.8) k/uL Sodium 136 L (137-145) mmol/L BUN 25 H (7-17) mg/dL Creatinine 1.30 H (0.52-1.04) mg/dL Glucose 171 H (74-99) mg/dL POC Glucose (mg/dL) 222 H (70-110) mg/dL Calcium 6.9 L (8.4-10.2) mg/dL AST 43 H (14-36) U/L Total Protein 5.8 L (6.3-8.2) g/dL Albumin 3.2 L (3.5-5.0) g/dL 01/24/23 Range/Units 07:11 WBC (3.8-10.6) k/uL RBC (3.80-5.40) m/uL Hgb (11.4-16.0) gm/dL Hct (34.0-46.0) % Neutrophils # (1.3-7.7) k/uL Lymphocytes # (1.0-4.8) k/uL Sodium (137-145) mmol/L BUN (7-17) mg/dL Creatinine (0.52-1.04) mg/dL Glucose (74-99) mg/dL POC Glucose (mg/dL) 168 H (70-110) mg/dL Calcium (8.4-10.2) mg/dL AST (14-36) U/L Total Protein (6.3-8.2) g/dL Albumin (3.5-5.0) g/dL Microbiology - Last 24 Hours (Table) 01/22/23 00:59 Gram Stain - Final Sputum Sputum Culture - Final Assessment and Plan Assessment: Angioedema possibly related to lisinopril, is status post intubation mechanical ventilation for airway protection. The patient is back to normal and she was extubated. She is currently on 3 L of oxygen by nasal cannula. This will be further weaned off. No active swelling in the tongue. No lip swelling. She does have crowding of the posterior pharynx and Mallampati class IV. There may be underlying component of obstructive sleep apnea. She remains on a comb ination of Benadryl and Solu-Medrol. Acute hypoxemic and hypercapnic respiratory failure secondary to above, currently on 3 L of O2 nasal cannula Hypotension and possible anaphylactic shock, recovered Essential hypertension Diabetes mellitus type 2, yiu-qscvzca-jpaapmuxe, there is a component of steroid-induced hyperglycemia Chronic kidney disease stage III CML currently being treated with Gleevec Obesity, with a BMI of 37 Plan: Discontinue the IV Solu-Medrol and put the patient prednisone burst taper starting with 40 mg Discontinue the Benadryl Wean down FiO2 Incentive spirometer Avoid OLMAN inhibitor medications Outpatient polysomnography IV fluids to KVO Patient can be transferred to a medical surgical floor.
[2023-01-24 12:04] LABS: Glucose,Whole Blood 188 mg/dL (70-110)
[2023-01-24] MEDS: predniSONE 20 MG TAB PO SCH (12:58)
[2023-01-24] MEDS: SODIUM CHLORIDE 0.9% 1,000 ML IV SCH (15:47)
--- NOTE | 2023-01-24 16:16 | P.PN ---
Subjective Progress Note Date: 01/24/23 Faustino Kelly, is a 52-year-old female who presented to [facility] emergency room with a chief complaint of nausea or vomiting and facial and tongue swelling. She was evaluated in the emergency room patient started having difficulty breathing and underwent intubation and was started on mechanical ventilation in the emergency room patient was admitted to intensive care unit. Pulmonary consultation was requested. Patient has a known history of hypertension she has been maintained on multiple blood pressure medications including atenolol and lisinopril, she also has a known history of chronic myelocytic leukemia, history of kidney stones, history of fnw-ocucoxk-zqbkxodje diabetes mellitus, and history of anxiety with panic disorder. On 01/23/2023 patient is alert and oriented 3 patient has been extubated remains in the intensive care unit. Family at bedside. Patient currently on 5 L cannula. At this time patient denies chest pain or shortness of breath. Patient denies nausea vomiting or diarrhea. Patient denies any urinary burning or frequency patient remains on IV steroids On 01/24/2023 patient was seen and examined on the medical floor, she was transferred out of ICU, she is still complaining of cough, shortness of breath is improving, she denies any difficulty swallowing. Patient is being transitioned off oxygen and of IV medication in to oral prednisone, if stable possible discharge in the next 1-2 days Objective - Vital Signs Vital signs: Vital Signs Temp 98.5 F 01/24/23 08:00 Pulse 74 01/24/23 14:00 Resp 18 01/24/23 14:00 BP 133/83 01/24/23 14:00 Pulse Ox 94 L 01/24/23 14:00 FiO2 40 01/23/23 08:00 Intake & Output 01/23/23 01/24/23 01/24/23 18:59 06:59 18:59 Intake Total 943.415 300 Output Total 435 780 900 Balance 508.415 480 -900 Weight 90.7 kg Intake: IV 825 300 Dextrose 5% in Water 1, 150 000 ml @ 75 mls/hr IV . [id number] JENNIFER with Sodium Bicarb (1 Meq/ml) 150 ml Rx#:[id number] Sodium Chloride 0.9% 1, 675 300 000 ml @ 10 mls/hr IV . Q24H [facility] Rx#:[id number] Intake, IV Titration 118.415 Amount propofoL 1,000 mg In 118.415 Empty Bag 1 bag @ 15 MCG/ KG/MIN 7.757 mls/hr IV . [id number] [facility] Rx#:[id number] Output: Urine 435 780 900 Other: Voiding Method Indwelling Catheter Toilet Toilet # Voids 0 0 - Exam In general patient is intubated sedated maintained on mechanical ventilation HEENT head normocephalic and atraumatic Neck is supple no JVD no goiter no lymphadenopathy no carotid bruit Chest examination is clear to auscultation no crackles no wheezing Cardiac exam reveals regular heart sounds S1 and S2 no gallops no murmurs Abdomen is soft nontender no organomegaly with normal bowel sounds Extremity exam reveals no edema no cyanosis or clubbing Neurological examination reveals no gross focal deficits - Labs CBC & Chem 7: 01/24/23 04:50 01/24/23 04:50 Labs: Abnormal Lab Results - Last 24 Hours (Table) 01/23/23 01/23/23 01/23/23 Range/Units 17:36 20:24 22:54 WBC (3.8-10.6) k/uL RBC (3.80-5.40) m/uL Hgb (11.4-16.0) gm/dL Hct (34.0-46.0) % Neutrophils # (1.3-7.7) k/uL Lymphocytes # (1.0-4.8) k/uL Sodium (137-145) mmol/L BUN (7-17) mg/dL Creatinine (0.52-1.04) mg/dL Glucose (74-99) mg/dL POC Glucose (mg/dL) 138 H 212 H 222 H (70-110) mg/dL Calcium (8.4-10.2) mg/dL AST (14-36) U/L Total Protein (6.3-8.2) g/dL Albumin (3.5-5.0) g/dL 01/24/23 01/24/23 01/24/23 Range/Units 04:50 04:50 07:11 WBC 12.0 H (3.8-10.6) k/uL RBC 3.00 L (3.80-5.40) m/uL Hgb 9.6 L (11.4-16.0) gm/dL Hct 29.7 L (34.0-46.0) % Neutrophils # 11.1 H (1.3-7.7) k/uL Lymphocytes # 0.6 L (1.0-4.8) k/uL Sodium 136 L (137-145) mmol/L BUN 25 H (7-17) mg/dL Creatinine 1.30 H (0.52-1.04) mg/dL Glucose 171 H (74-99) mg/dL POC Glucose (mg/dL) 168 H (70-110) mg/dL Calcium 6.9 L (8.4-10.2) mg/dL AST 43 H (14-36) U/L Total Protein 5.8 L (6.3-8.2) g/dL Albumin 3.2 L (3.5-5.0) g/dL 01/24/23 Range/Units 12:03 WBC (3.8-10.6) k/uL RBC (3.80-5.40) m/uL Hgb (11.4-16.0) gm/dL Hct (34.0-46.0) % Neutrophils # (1.3-7.7) k/uL Lymphocytes # (1.0-4.8) k/uL Sodium (137-145) mmol/L BUN (7-17) mg/dL Creatinine (0.52-1.04) mg/dL Glucose (74-99) mg/dL POC Glucose (mg/dL) 188 H (70-110) mg/dL Calcium (8.4-10.2) mg/dL AST (14-36) U/L Total Protein (6.3-8.2) g/dL Albumin (3.5-5.0) g/dL Microbiology - Last 24 Hours (Table) 01/22/23 00:59 Gram Stain - Final Sputum Sputum Culture - Final Assessment and Plan Plan: ALLERGIC reaction with angioedema possibly related to OLMAN inhibitor Anaphylactic shock with hypotension, received multiple IV fluid boluses Acute hypoxemic and hypercapnic respiratory failure requiring intubation and mechanical ventilation started in the emergency room Underlying history of hypertension Underlying history of xvz-hzzrxpg-pavdkzmkh diabetes mellitus Underlying history of chronic myelocytic leukemia maintained on Gleevec Underlying history of chronic kidney disease stage III Underlying history of morbid obesity At this time patient is admitted to intensive care unit Patient extubated on 01/23/2023 She is receiving IV fluid, IV Solu-Medrol, and Benadryl For DVT prophylaxis subcu Lovenox Pulmonary critical care following Will follow closely
[2023-01-24 17:33] LABS: Glucose,Whole Blood 202 mg/dL (70-110)
[2023-01-24 20:22] LABS: Glucose,Whole Blood 220 mg/dL (70-110)
[2023-01-25] MEDS: SODIUM CHLORIDE 0.9% 1,000 ML IV SCH (00:17)
[2023-01-25 07:22] LABS: Glucose,Whole Blood 135 mg/dL (70-110)
[2023-01-25 07:50] VITALS: RESP 18
[2023-01-25] MEDS: INSULIN ASPART (NovoLOG) 100 UNIT/ML VIAL SQ SCH ×4 (08:03→21:23)
[2023-01-25] MEDS: predniSONE 20 MG TAB PO SCH (08:19)
[2023-01-25] MEDS: FAMOTIDINE 20 MG/2 ML VIAL IV SCH (08:19)
[2023-01-25] MEDS: atenoloL 50 MG TAB PO SCH (08:19)
[2023-01-25] MEDS: ESCITALOPRAM 5 MG TAB PO SCH (08:19)
[2023-01-25] MEDS: HEPARIN SODIUM,PORCINE/PF 5,000 UNIT/0.5 ML SYRINGE SQ SCH ×3 (08:19→21:23)
[2023-01-25] MEDS: IPRATROPIUM-ALBUTEROL 3 ML NEB INHALATION SCH ×4 (08:50→19:58)
--- NOTE | 2023-01-25 11:27 | P.DS ---
Providers Date of admission: 01/21/23 23:20 Expected date of discharge: 01/25/23 Attending physician: Mk Gallegos Consults: 01/21/23 23:20 Consult Physician Stat Consulting Provider: Ann Lya Consult Reason/Comments: avdrf, olman induced angioedema Do you want consulting provider notified?: Already Contacted 01/22/23 22:46 Consult Physician Routine Consulting Provider: Burak Soriano Consult Reason/Comments: CML Do you want consulting provider notified?: Yes, Notify in am Primary care physician: Cady Caal [facility] Course: Discharge diagnosis ALLERGIC reaction with angioedema possibly related to OLMAN inhibitor Anaphylactic shock with hypotension, received multiple IV fluid boluses Acute hypoxemic and hypercapnic respiratory failure requiring intubation and mechanical ventilation started in the emergency room Underlying history of hypertension Underlying history of utz-ueggaco-byvbxmsaf diabetes mellitus Underlying history of chronic myelocytic leukemia maintained on Gleevec Underlying history of chronic kidney disease stage III Underlying history of morbid obesity Hospital course Faustino Kelly, is a 52-year-old female who presented to [facility] emergency room with a chief complaint of nausea or vomiting and facial and tongue swelling. She was evaluated in the emergency room patient started having difficulty breathing and underwent intubation and was started on mechanical ventilation in the emergency room patient was admitted to intensive care unit. Pulmonary consultation was requested. Patient has a known history of hypertension she has been maintained on multiple blood pressure medications including atenolol and lisinopril, she also has a known history of chronic myelocytic leukemia, history of kidney stones, history of wcm-quvklox-sfuelzgrf diabetes mellitus, and history of anxiety with panic disorder. On 01/23/2023 patient is alert and oriented 3 patient has been extubated remains in the intensive care unit. Family at bedside. Patient currently on 5 L cannula. At this time patient denies chest pain or shortness of breath. Patient denies nausea vomiting or diarrhea. Patient denies any urinary burning or frequency patient remains on IV steroids On 01/24/2023 patient was seen and examined on the medical floor, she was transferred out of ICU, she is still complaining of cough, shortness of breath is improving, she denies any difficulty swallowing. Patient is being transitioned off oxygen and of IV medication in to oral prednisone, if stable possible discharge in the next 1-2 days 01/25/2023 patient cleared for discharge from pulmonary standpoint. Patient will be DC'd on prednisone taper. Patient to follow-up with PCP and pulmonary services for further management. Home O2 prescription to be evaluated by pulmonary services Patient Condition at Discharge: Stable Plan - Discharge Summary New Discharge Prescriptions: New predniSONE 10 mg PO DIRECTED 16 Days #40 tab Continue atenoloL [Atenolol] 50 mg PO DAILY Imatinib Mesylate [Gleevec] 400 mg PO DAILY metFORMIN HCL [Glucophage] 500 mg PO DAILY Escitalopram [Lexapro] 5 mg PO DAILY Triamcinolone 0.1% Ointment [Kenalog 0.1% Ointment] 1 applic TOPICAL BID Discharge Medication List atenoloL [Atenolol] 50 mg PO DAILY 07/08/15 [History] Imatinib Mesylate [Gleevec] 400 mg PO DAILY 03/25/17 [History] Escitalopram [Lexapro] 5 mg PO DAILY 01/21/23 [History] Triamcinolone 0.1% Ointment [Kenalog 0.1% Ointment] 1 applic TOPICAL BID 01/21/23 [History] metFORMIN HCL [Glucophage] 500 mg PO DAILY 01/21/23 [History] predniSONE 10 mg PO DIRECTED 16 Days #40 tab 01/25/23 [Rx] Follow up Appointment(s)/Referral(s): Cady Caal MD [Primary Care Provider] - 1-2 days Ann Lay MD [STAFF PHYSICIAN] - 1 Week Activity/Diet/Wound Care/Special Instructions: hold gleevec until recovered from acute episode Discharge Disposition: HOME SELF-CARE
--- NOTE | 2023-01-25 12:31 | P.PN ---
Subjective Progress Note Date: 01/25/23 Faustino Kelly, is a 52-year-old female who presented to [facility] emergency room with a chief complaint of nausea or vomiting and facial and tongue swelling. She was evaluated in the emergency room patient started having difficulty breathing and underwent intubation and was started on mechanical ventilation in the emergency room patient was admitted to intensive care unit. Pulmonary consultation was requested. Patient has a known history of hypertension she has been maintained on multiple blood pressure medications including atenolol and lisinopril, she also has a known history of chronic myelocytic leukemia, history of kidney stones, history of mcu-geeynxk-nmvvhbyel diabetes mellitus, and history of anxiety with panic disorder. On 01/23/2023 patient is alert and oriented 3 patient has been extubated remains in the intensive care unit. Family at bedside. Patient currently on 5 L cannula. At this time patient denies chest pain or shortness of breath. Patient denies nausea vomiting or diarrhea. Patient denies any urinary burning or frequency patient remains on IV steroids On 01/24/2023 patient was seen and examined on the medical floor, she was transferred out of ICU, she is still complaining of cough, shortness of breath is improving, she denies any difficulty swallowing. Patient is being transitioned off oxygen and of IV medication in to oral prednisone, if stable possible discharge in the next 1-2 days On 01/25/2023 patient was seen and examined on the medical floor she is alert and oriented 3 in no apparent distress she stated that she is feeling well and denies any symptoms at this time. Initially I was told that patient was cleared by pulmonary for discharge. Discharge was initiated, however patient pulse ox was dropping down to 80% on room air with ambulation, I was asked to sign for orders for home oxygen, I spoke was Dr. Lay in regard to diagnosis for oxygen. At that time Dr. Lay told me that he was not aware of her oxygen dropping, and patient will need further evaluation, arterial blood gas and CT angiogram of the chest were ordered by Dr. Lay, at this time discharge was canceled. Objective - Vital Signs Vital signs: Vital Signs Temp 98.3 F 01/25/23 11:34 Pulse 75 01/25/23 11:59 Resp 18 01/25/23 11:34 BP 117/74 01/25/23 11:34 Pulse Ox 96 06/23/23 11:34 FiO2 40 01/23/23 08:00 Intake & Output 01/24/23 01/25/23 01/25/23 18:59 06:59 18:59 Intake Total 708 Output Total 900 Balance -900 708 Intake: Oral 708 Output: Urine 900 Other: Voiding Method Toilet Toilet Toilet # Voids 1 2 - Exam In general patient is intubated sedated maintained on mechanical ventilation HEENT head normocephalic and atraumatic Neck is supple no JVD no goiter no lymphadenopathy no carotid bruit Chest examination is clear to auscultation no crackles no wheezing Cardiac exam reveals regular heart sounds S1 and S2 no gallops no murmurs Abdomen is soft nontender no organomegaly with normal bowel sounds Extremity exam reveals no edema no cyanosis or clubbing Neurological examination reveals no gross focal deficits - Labs CBC & Chem 7: 01/24/23 04:50 01/24/23 04:50 Labs: Abnormal Lab Results - Last 24 Hours (Table) 01/23/23 01/24/23 01/24/23 Range/Units 05:40 17:32 20:21 POC Glucose (mg/dL) 202 H 220 H (70-110) mg/dL Hemoglobin A1c 6.8 H (<=6.0) % 01/25/23 Range/Units 07:20 POC Glucose (mg/dL) 135 H (70-110) mg/dL Hemoglobin A1c (<=6.0) % Microbiology - Last 24 Hours (Table) 01/22/23 00:59 Gram Stain - Final Sputum Sputum Culture - Final Assessment and Plan Plan: ALLERGIC reaction with angioedema possibly related to OLMAN inhibitor Anaphylactic shock with hypotension, received multiple IV fluid boluses Acute hypoxemic and hypercapnic respiratory failure requiring intubation and mechanical ventilation started in the emergency room Underlying history of hypertension Underlying history of smp-xodvwgm-asqnwphye diabetes mellitus Underlying history of chronic myelocytic leukemia maintained on Gleevec Underlying history of chronic kidney disease stage III Underlying history of morbid obesity At this time patient is admitted to intensive care unit Patient extubated on 01/23/2023 She is receiving IV fluid, IV Solu-Medrol, and Benadryl For DVT prophylaxis subcu Lovenox Pulmonary critical care following Will follow closely
[2023-01-25 12:34] LABS: Glucose,Whole Blood 166 mg/dL (70-110)
[2023-01-25 13:18] LABS: ABG PCO2 38 mmHg (35-45); ABG PH 7.45 (7.35-7.45); Allen Test Performed? Yes
[2023-01-25 13:19] LABS: ABG Base Excess 2.7 mmol/L; ABG HCO3 27 mmol/L (21-25); ABG PO2 54 mmHg (83-108); ABG TCO2 28 mmol/L (19-24)
--- NOTE | 2023-01-25 14:05 | CT ---
EXAMINATION TYPE: CT angio chest DATE OF EXAM: 01/25/2023 1:52 PM COMPARISON: Chest x-ray 01/23/2023 HISTORY: hypoxia CT DLP: 413.7 mGycm Automated exposure control for dose reduction was used. CONTRAST: CTA scan of the thorax is performed with IV Contrast, patient injected with 100 mL of Isovue 370, pul monary embolism protocol. . FINDINGS: LUNGS: There are bilateral areas of consolidation suggestive of pneumonia. Patchy bilateral upper lob e areas of infiltrate also noted. Trace pleural effusion bilaterally. No pneumothorax. MEDIASTINUM: There is no evidence of central pulmonary embolism. Distal branches is limited due to op acification and artifact. The heart is enlarged. There is a trace of pericardial fluid. There is soft tissue density in the mediastinum measuring short axis of 1.2 cm compatible adenopathy. Aorta normal caliber. OTHER: Hypertrophic and degenerative changes spine. Small hiatal hernia noted. Liver is prominent in size compatible with hepatomegaly and reduced attenuation correlate for hepatic steatosis. Spleen me asures 13 cm suggestive of borderline splenomegaly. IMPRESSION: 1. BILATERAL LOWER LOBE CONSOLIDATION AND TINY EFFUSION CORRELATE FOR PNEUMONIA. 2. NO CENTRAL PULMONARY EMBOLISM. ARTIFACT AND SUBOPTIMAL OPACIFICATION OF DISTAL BRANCHES LIMITS THE IR ASSESSMENT. 3. BORDERLINE MEDIASTINAL LYMPHADENOPATHY POSSIBLY REACTIVE SECONDARY TO PNEUMONIA CORRELATE CLINICAL LY. 4. HEPATOMEGALY CORRELATE FOR HEPATIC STEATOSIS.
--- NOTE | 2023-01-25 15:50 | P.PN ---
Subjective Progress Note Date: 01/25/23 I am seeing this patient in new consultation today 01/22/2023 following an ALLERGIC reaction and angioedema. Patient is a 52-year-old white female with past medical history significant for hypertension, diabetes mellitus type 2, chronic kidney disease, and CML. Patient is currently intubated to the [facility] hanical ventilator, and most of this HPI is collected from the patient's family members and chart. Patient's states that yesterday evening the patient started to experience some nausea, vomiting, diarrhea, followed by facial and tongue swelling. The patient's states that she has been taking blood pressure medication for the last 1-2 years, but was unsure if Lisinopril was a new medication. Denies the patient trying any new foods or prior ALLERGIC reactions. EMS was called and the patient was administered an EpiPen on the scene. Patient also was given IV Solu-Medrol and Benadryl. The patient was taken to the emergency room last night, and required rapid sequence intubation for airway protection. Post intubation chest x-ray shows endotracheal tube approximately 3 cm from the manjula, possible mild infiltrate or more likely atelectasis in the left lung base, and an orogastric tube coursing below the diaphragm. Patient is currently in the intensive care unit, intubated, and synchronous with the mechanical ventilator. Current ventilator settings are assist control, respiratory rate 16, tidal volume 350, FiO2 70%, and PEEP of 5. Most recent ABG show a pO2 of 86, pCO2 of 41, pH of 7.25. Propofol is currently infusing at 60 mcg/kg/m for sedation. While in the emergency room, the patient did receive a dose of TXA and IM epinephrine. Patient is currently hypotensive and tachycardic. The patient will be given additional fluids. No vasopressors are currently infusing. CBC on arrival was unremarkable. BMP on arrival shows a sodium 138, potassium 3.5, chloride 111, serum CO2 20, BUN 19, creatinine 1.3, glucose 154. Patient will be monitored in the intensive care unit. On today's evaluation of 01/23/2023, the patient remains intubated on a mechanical ventilator. The patient was intubated for airway protection as the patient had angioedema. This was induced by OLMAN inhibitor. This morning, she remains on propofol running at 20 mcg/kg/m. She is on IV fluid at 75 mL an hour. She is receiving IV Solu-Medrol and IV Benadryl. She remains on assist-control mode of mechanical ventilation at the rate of 16, tidal volume of 400, FiO2 of 40% with a PEEP of 5. Peak airway pressure is 25. The chest x-ray from today shows no acute abnormalities. Orotracheal tube is in a good location. NG tube is in a good location. Noted the patient is intubated via #6 orotracheal tube. Blood gas from today shows a pH of 7.39 with episodes of 40 and pO2 of 80. BUN is at 60 with a creatinine of 1.2 and a sodium level is at 138. Patient's blood sugar is also elevated at 289. The risk was at 9.2 with a hemoglobin of 10.5. No other significant events overnight. She is known to have history of CML. He is On 01/24/2023, the patient is awake and alert and communicating. She was weaned off the mechanical ventilator and she was extubated yesterday at 10:30 AM. No issues with stridor. No issues with difficulty breathing. She is currently on 3 L O2 nasal cannula. No issues with lip or tongue swelling. She remains on Benadryl and IV Solu-Medrol. Her blood pressure is under adequate control. Labs from today shows a WBC count of 12 with a hemoglobin of 9.6 and a platelet count of 180. BUN is at 25 with a creatinine of 1.3 and the sodium level is at 136. The patient has no specific complaints otherwise for now. On 01/25/2023, the patient is currently on a medical and the patient was discharged out of the intensive care unit. Noted the patient was being contemplated for discharge. Nevertheless the patient was found to be hypoxic. A pulse ox was done and was as low as 86%. The patient was desaturating. . In fact, the blood gas with a pH of 7.45 with a pCO2 of 38 and pO2 of 54. This was not an FiO2 of 24% which is 2 L of oxygen by nasal cannula. Based on that, the patient was given a CT angiogram that showed no evidence of any pulmonary embolism. There was evidence of bilateral lower lobe consolidation and tiny effusions, most consistent of atelectasis. Possibility of pneumonia cannot be completely excluded. Objective - Vital Signs Vital signs: Vital Signs Temp 98.3 F 01/25/23 11:34 Pulse 75 01/25/23 11:59 Resp 18 01/25/23 11:34 BP 117/74 01/25/23 11:34 Pulse Ox 96 01/25/23 11:34 FiO2 40 01/23/23 08:00 Intake & Output 01/24/23 01/25/23 01/25/23 18:59 06:59 18:59 Intake Total 708 Output Total 900 Balance -900 708 Intake: Oral 708 Output: Urine 900 Other: Voiding Method Toilet Toilet Toilet # Voids 1 2 - Exam GENERAL EXAM: 52-year-old, obese white female, patient has been extubated to 3 L of oxygen by nasal cannula. HEAD: Normocephalic and atraumatic. There is No facial swelling and obvious swelling of the tongue. EYES: Normal reaction of pupils, equal size. NOSE: Clear with pink turbinates. THROAT: No erythema or exudates. NECK: No masses, no JVD. CHEST: No chest wall deformity. LUNGS: Equal air entry with minimal wheezing. no crackles, rhonchi or dullness. Intubated to mechanical ventilator CVS: S1 and S2 normal with no audible murmur, regular rhythm. No extra heart sounds. Heart rate is tachycardic ABDOMEN: Obese abdomen. No hepatosplenomegaly, active bowel sounds, no guarding or rigidity. SPINE: No scoliosis or deformity SKIN: No rashes CENTRAL NERVOUS SYSTEM: No focal deficits, tone is normal in all 4 extremities. EXTREMITIES: There is no peripheral edema, clubbing, or cyanosis. Peripheral pulses are intact. - Labs CBC & Chem 7: 01/24/23 04:50 01/24/23 04:50 Labs: Abnormal Lab Results - Last 24 Hours (Table) 01/23/23 01/24/23 01/24/23 Range/Units 05:40 17:32 20:21 ABG pO2 (83-108) mmHg ABG HCO3 (21-25) mmol/L ABG Total CO2 (19-24) mmol/L ABG O2 Saturation (94-97) % POC Glucose (mg/dL) 202 H 220 H (70-110) mg/dL Hemoglobin A1c 6.8 H (<=6.0) % 01/25/23 01/25/2323 Range/Units 07:20 12:31 12:59 ABG pO2 54 L* (83-108) mmHg ABG HCO3 27 H (21-25) mmol/L ABG Total CO2 28 H (19-24) mmol/L ABG O2 Saturation 89.0 L (94-97) % POC Glucose (mg/dL) 135 H 166 H (70-110) mg/dL Hemoglobin A1c (<=6.0) % Assessment and Plan Assessment: Angioedema possibly related to lisinopril, is status post intubation mechanical ventilation for airway protection. The patient is back to normal and she was extubated. She is currently on 3 L of oxygen by nasal cannula. This will be further weaned off. No active swelling in the tongue. No lip swelling. She does have crowding of the posterior pharynx and Mallampati class IV. There may be underlying component of obstructive sleep apnea. She remains prednisone burst taper for now and there is no signs of any upper airway obstruction or swelling at this point in time. Acute hypoxemic and hypercapnic respiratory failure secondary to above, currently on 3 L of O2 nasal cannula, the patient continues to have some atelectatic changes and possible some early infiltrates in lung bases and the patient remains hypoxic based on the CT angiogram. Hypotension and possible anaphylactic shock, recovered Essential hypertension Diabetes mellitus type 2, [id number], there is a component of steroid-induced hyperglycemia Chronic kidney disease stage III CML currently being treated with Gleevec Obesity, with a BMI of 37 Plan: Placed the patient on Augmentin 875 mg by mouth twice a day for 7 days Prednisone burst taper Incentive spirometer Wean down FiO2 Arrange for home O2 Avoid OLMAN inhibitor medications Outpatient polysomnography IV fluids to KVO
[2023-01-25 17:17] LABS: Glucose,Whole Blood 176 mg/dL (70-110)
[2023-01-25 20:08] LABS: Glucose,Whole Blood 227 mg/dL (70-110)
[2023-01-25] MEDS: AMOXIC-POT CLAV 875-125MG 1 EACH TAB PO SCH (21:22)
[2023-01-26] MEDS: SODIUM CHLORIDE 0.9% 1,000 ML IV SCH (01:20)
[2023-01-26 07:48] LABS: Glucose,Whole Blood 97 mg/dL (70-110)
[2023-01-26] MEDS: IPRATROPIUM-ALBUTEROL 3 ML NEB INHALATION SCH ×3 (07:48→15:44)
[2023-01-26] MEDS: INSULIN ASPART (NovoLOG) 100 UNIT/ML VIAL SQ SCH ×2 (07:54→12:57)
[2023-01-26] MEDS: FAMOTIDINE 20 MG/2 ML VIAL IV SCH (08:41)
[2023-01-26] MEDS: HEPARIN SODIUM,PORCINE/PF 5,000 UNIT/0.5 ML SYRINGE SQ SCH ×2 (08:41→08:47)
[2023-01-26] MEDS: atenoloL 50 MG TAB PO SCH (08:41)
[2023-01-26] MEDS: AMOXIC-POT CLAV 875-125MG 1 EACH TAB PO SCH (08:41)
[2023-01-26] MEDS: ESCITALOPRAM 5 MG TAB PO SCH (08:41)
[2023-01-26] MEDS: predniSONE 20 MG TAB PO SCH (08:41)
[2023-01-26 08:48] VITALS: TEMP 99.1
[2023-01-26 10:34] VITALS: BP 127/71
[2023-01-26 11:07] LABS: Basophils % (A) 0 %; Eosinophils # (A) 0.1 k/uL (0-0.7); Eosinophils % (A) 1 %; HCT 30.9 % (34.0-46.0); HGB 10.3 gm/dL (11.4-16.0); Lymphocytes # (A) 2.8 k/uL (1.0-4.8); Lymphocytes % (A) 26 %; MCH 33.8 pg (25.0-35.0); MCHC 33.3 g/dL (31.0-37.0); MCV 101.6 fL (80.0-100.0); Macrocytosis Slight; Monocytes # (A) 0.5 k/uL (0-1.0); Monocytes % (A) 5 %; Neutrophils # (A) 7.2 k/uL (1.3-7.7); Neutrophils % (A) 67 %; Platelet Count 190 k/uL (150-450); RBC 3.04 m/uL (3.80-5.40); RDW 13.7 % (11.5-15.5); WBC 10.8 k/uL (3.8-10.6)
[2023-01-26 11:19] LABS: ALT 37 U/L (4-34); AST 40 U/L (14-36); African American GFR (CKD) 66 (>60 ml/min/1.73 sqM); Albumin 3.6 g/dL (3.5-5.0); Albumin/Globulin Ratio 1.2; Alkaline Phosphatase 63 U/L (38-126); Anion Gap 7 mmol/L; Blood Urea Nitrogen 26 mg/dL (7-17); Calcium 8.1 mg/dL (8.4-10.2); Carbon Dioxide 25 mmol/L (22-30); Chloride 105 mmol/L (98-107); Globulin 2.9 g/dL; Glucose 100 mg/dL (74-99); Non-African American GFR(CKD) 57 (>60 ml/min/1.73 sqM); Potassium 3.7 mmol/L (3.5-5.1); Sodium 137 mmol/L (137-145); Total Bilirubin 0.6 mg/dL (0.2-1.3); Total Protein 6.5 g/dL (6.3-8.2)
--- NOTE | 2023-01-26 11:47 | P.DS ---
Providers Date of admission: 01/21/23 23:20 Expected date of discharge: 01/26/23 Attending physician: Mk Gallegos Consults: 01/21/23 23:20 Consult Physician Stat Consulting Provider: Ann Lay Consult Reason/Comments: avdrf, olman induced angioedema Do you want consulting provider notified?: Already Contacted 01/22/23 22:46 Consult Physician Routine Consulting Provider: Burak Soriano Consult Reason/Comments: CML Do you want consulting provider notified?: Yes, Notify in am Primary care physician: Cady Caal [facility] Course: Diagnosis on discharge: ALLERGIC reaction with angioedema possibly related to OLMAN inhibitor Anaphylactic shock with hypotension, received multiple IV fluid boluses Acute hypoxemic and hypercapnic respiratory failure requiring intubation and mechanical ventilation started in the emergency room Underlying history of hypertension Underlying history of dbe-aghsayz-tueaahxox diabetes mellitus Underlying history of chronic myelocytic leukemia maintained on Gleevec Underlying history of chronic kidney disease stage III Bibasilar infiltrates suggestive of pneumonia Atelectasis, bilateral Underlying history of morbid obesity Hospital course: Faustino Kelly, is a 52-year-old female who presented to [facility] emergency room with a chief complaint of nausea or vomiting and facial and tongue swelling. She was evaluated in the emergency room patient started having difficulty breathing and underwent intubation and was started on mechanical ventilation in the emergency room patient was admitted to intensive care unit. Pulmonary consultation was requested. Patient has a known history of hypertension she has been maintained on multiple blood pressure medications including atenolol and lisinopril, she also has a known history of chronic myelocytic leukemia, history of kidney stones, history of [id number]-sgtflkexh diabetes mellitus, and history of anxiety with panic disorder. On 01/23/2023 patient is alert and oriented 3 patient has been extubated remains in the intensive care unit. Family at bedside. Patient currently on 5 L cannula. At this time patient denies chest pain or shortness of breath. Patient denies nausea vomiting or diarrhea. Patient denies any urinary burning or frequency patient remains on IV steroids On 01/24/2023 patient was seen and examined on the medical floor, she was transferred out of ICU, she is still complaining of cough, shortness of breath is improving, she denies any difficulty swallowing. Patient is being transitioned off oxygen and of IV medication in to oral prednisone, if stable possible discharge in the next 1-2 days On 01/25/2023 patient was seen and examined on the medical floor she is alert and oriented 3 in no apparent distress she stated that she is feeling well and denies any symptoms at this time. Initially I was told that patient was cleared by pulmonary for discharge. Discharge was initiated, however patient pulse ox was dropping down to 80% on room air with ambulation, I was asked to sign for orders for home oxygen, I spoke was Dr. Lay in regard to diagnosis for oxygen. At that time Dr. Lay told me that he was not aware of her oxygen dropping, and patient will need further evaluation, arterial blood gas and CT angiogram of the chest were ordered by Dr. Lay, at this time discharge was canceled. On 01/26/2023 patient was seen and examined on the medical floor she is alert and oriented 3 in no apparent distress she stated that she is feeling well and denies any symptoms at this time. Patient reports improvement in her shortness of breath her pulse ox however continue to drop to the 80s when ambulating CT angiogram was done yesterday and revealed by basilar infiltrates suggestive of pneumonia she was started on oral Augmentin case was discussed was Dr. Lay patient was cleared for discharge she was given a prescription for oral Augmen tin 875 mg twice daily for 7 days she was also given a prednisone taper. Arrangement will be made for home oxygen was diagnosis of by basilar pneumonia and atelectasis. Follow-up with Dr. Lay within one week follow-up with primary care physician within one week Patient Condition at Discharge: Stable Plan - Discharge Summary New Discharge Prescriptions: New Amoxic-Pot Clav 875-125Mg [Augmentin 875-125] 1 each PO Q12HR tab predniSONE 10 mg PO DIRECTED 16 Days #40 tab Continue atenoloL [Atenolol] 50 mg PO DAILY Imatinib Mesylate [Gleevec] 400 mg PO DAILY metFORMIN HCL [Glucophage] 500 mg PO DAILY Escitalopram [Lexapro] 5 mg PO DAILY Triamcinolone 0.1% Ointment [Kenalog 0.1% Ointment] 1 applic TOPICAL BID Discharge Medication List atenoloL [Atenolol] 50 mg PO DAILY 07/08/15 [History] Imatinib Mesylate [Gleevec] 400 mg PO DAILY 03/25/17 [History] Escitalopram [Lexapro] 5 mg PO DAILY 01/21/23 [History] Triamcinolone 0.1% Ointment [Kenalog 0.1% Ointment] 1 applic TOPICAL BID 01/21/23 [History] metFORMIN HCL [Glucophage] 500 mg PO DAILY 01/21/23 [History] predniSONE 10 mg PO DIRECTED 16 Days #40 tab 01/25/23 [Rx] Amoxic-Pot Clav 875-125Mg [Augmentin 875-125] 1 each PO Q12HR tab 01/26/23 [Rx] Follow up Appointment(s)/Referral(s): Cady Caal MD [Primary Care Provider] - 01/28/23 1:00 pm Ann Lay MD [STAFF PHYSICIAN] - 02/06/23 2:00 pm Activity/Diet/Wound Care/Special Instructions: hold gleevec until recovered from acute episode Discharge Disposition: HOME SELF-CARE
[2023-01-26 12:10] VITALS: PULSE 73
[2023-01-26 12:35] LABS: Glucose,Whole Blood 157 mg/dL (70-110)
--- NOTE | 2023-01-26 14:18 | P.PN ---
Subjective Progress Note Date: 01/26/23 I am seeing this patient in new consultation today 01/22/2023 following an ALLERGIC reaction and angioedema. Patient is a 52-year-old white female with past medical history significant for hypertension, diabetes mellitus type 2, chronic kidney disease, and CML. Patient is currently intubated to the [facility] hanical ventilator, and most of this HPI is collected from the patient's family members and chart. Patient's states that yesterday evening the patient started to experience some nausea, vomiting, diarrhea, followed by facial and tongue swelling. The patient's states that she has been taking blood pressure medication for the last 1-2 years, but was unsure if Lisinopril was a new medication. Denies the patient trying any new foods or prior ALLERGIC reactions. EMS was called and the patient was administered an EpiPen on the scene. Patient also was given IV Solu-Medrol and Benadryl. The patient was taken to the emergency room last night, and required rapid sequence intubation for airway protection. Post intubation chest x-ray shows endotracheal tube approximately 3 cm from the manjula, possible mild infiltrate or more likely atelectasis in the left lung base, and an orogastric tube coursing below the diaphragm. Patient is currently in the intensive care unit, intubated, and synchronous with the mechanical ventilator. Current ventilator settings are assist control, respiratory rate 16, tidal volume 350, FiO2 70%, and PEEP of 5. Most recent ABG show a pO2 of 86, pCO2 of 41, pH of 7.25. Propofol is currently infusing at 60 mcg/kg/m for sedation. While in the emergency room, the patient did receive a dose of TXA and IM epinephrine. Patient is currently hypotensive and tachycardic. The patient will be given additional fluids. No vasopressors are currently infusing. CBC on arrival was unremarkable. BMP on arrival shows a sodium 138, potassium 3.5, chloride 111, serum CO2 20, BUN 19, creatinine 1.3, glucose 154. Patient will be monitored in the intensive care unit. On today's evaluation of 01/23/2023, the patient remains intubated on a mechanical ventilator. The patient was intubated for airway protection as the patient had angioedema. This was induced by OLMAN inhibitor. This morning, she remains on propofol running at 20 mcg/kg/m. She is on IV fluid at 75 mL an hour. She is receiving IV Solu-Medrol and IV Benadryl. She remains on assist-control mode of mechanical ventilation at the rate of 16, tidal volume of 400, FiO2 of 40% with a PEEP of 5. Peak airway pressure is 25. The chest x-ray from today shows no acute abnormalities. Orotracheal tube is in a good location. NG tube is in a good location. Noted the patient is intubated via #6 orotracheal tube. Blood gas from today shows a pH of 7.39 with episodes of 40 and pO2 of 80. BUN is at 60 with a creatinine of 1.2 and a sodium level is at 138. Patient's blood sugar is also elevated at 289. The risk was at 9.2 with a hemoglobin of 10.5. No other significant events overnight. She is known to have history of CML. He is On 01/24/2023, the patient is awake and alert and communicating. She was weaned off the mechanical ventilator and she was extubated yesterday at 10:30 AM. No issues with stridor. No issues with difficulty breathing. She is currently on 3 L O2 nasal cannula. No issues with lip or tongue swelling. She remains on Benadryl and IV Solu-Medrol. Her blood pressure is under adequate control. Labs from today shows a WBC count of 12 with a hemoglobin of 9.6 and a platelet count of 180. BUN is at 25 with a creatinine of 1.3 and the sodium level is at 136. The patient has no specific complaints otherwise for now. On 01/25/2023, the patient is currently on a medical and the patient was discharged out of the intensive care unit. Noted the patient was being contemplated for discharge. Nevertheless the patient was found to be hypoxic. A pulse ox was done and was as low as 86%. The patient was desaturating. . In fact, the blood gas with a pH of 7.45 with a pCO2 of 38 and pO2 of 54. This was not an FiO2 of 24% which is 2 L of oxygen by nasal cannula. Based on that, the patient was given a CT angiogram that showed no evidence of any pulmonary embolism. There was evidence of bilateral lower lobe consolidation and tiny effusions, most consistent of atelectasis. Possibility of pneumonia cannot be completely excluded. On 01/26/2023, the patient is doing well. No new complaints. She is still having some exertional hypoxemia the patient is going to be going home on home O2 and prednisone burst taper a be also completed a course of Augmentin. The labs are all stable with a white cell count of 10.8 with a hemoglobin of 10.3 and a platelet count of 190. BUN is at 26 with a creatinine of 1.1. Objective - Vital Signs Vital signs: Vital Signs Temp 99.1 F 01/26/23 07:45 Pulse 73 01/26/23 12:09 Resp 18 01/26/23 07:45 BP 127/71 01/26/23 07:45 Pulse Ox 93 L 01/26/23 11:05 FiO2 40 01/23/23 08:00 Intake & Output 01/25/23 01/26/23 01/26/23 18:59 06:59 18:59 Intake Total 400 Balance 400 Intake: Oral 400 Other: Voiding Method Toilet Toilet # Voids 2 5 - Exam GENERAL EXAM: 52-year-old, obese white female, patient has been extubated to 3 L of oxygen by nasal cannula. HEAD: Normocephalic and atraumatic. There is No facial swelling and obvious swelling of the tongue. EYES: Normal reaction of pupils, equal size. NOSE: Clear with pink turbinates. THROAT: No erythema or exudates. NECK: No masses, no JVD. CHEST: No chest wall deformity. LUNGS: Equal air entry with minimal wheezing. no crackles, rhonchi or dullness. Intubated to mechanical ventilator CVS: S1 and S2 normal with no audible murmur, regular rhythm. No extra heart sounds. Heart rate is tachycardic ABDOMEN: Obese abdomen. No hepatosplenomegaly, active bowel sounds, no guarding or rigidity. SPINE: No scoliosis or deformity SKIN: No rashes CENTRAL NERVOUS SYSTEM: No focal deficits, tone is normal in all 4 extremities. EXTREMITIES: There is no peripheral edema, clubbing, or cyanosis. Peripheral pulses are intact. - Labs CBC & Chem 7: 01/26/23 10:23 01/26/23 10:23 Labs: Abnormal Lab Results - Last 24 Hours (Table) 01/25/23 01/25/23 01/26/23 Range/Units 17:16 20:06 10:23 WBC 10.8 H (3.8-10.6) k/uL RBC 3.04 L (3.80-5.40) m/uL Hgb 10.3 L (11.4-16.0) gm/dL Hct 30.9 L (34.0-46.0) % MCV 101.6 H (80.0-100.0) fL BUN (7-17) mg/dL Creatinine (0.52-1.04) mg/dL Glucose (74-99) mg/dL POC Glucose (mg/dL) 176 H 227 H (70-110) mg/dL Calcium (8.4-10.2) mg/dL AST (14-36) U/L ALT (4-34) U/L 01/26/23 01/26/23 Range/Units 10:23 12:33 WBC (3.8-10.6) k/uL RBC (3.80-5.40) m/uL Hgb (11.4-16.0) gm/dL Hct (34.0-46.0) % MCV (80.0-100.0) fL BUN 26 H (7-17) mg/dL Creatinine 1.12 H (0.52-1.04) mg/dL Glucose 100 H (74-99) mg/dL POC Glucose (mg/dL) 157 H (70-110) mg/dL Calcium 8.1 L (8.4-10.2) mg/dL AST 40 H (14-36) U/L ALT 37 H (4-34) U/L Assessment and Plan Assessment: Angioedema possibly related to lisinopril, is status post intubation mechanical ventilation for airway protection. The patient is back to normal and she was extubated. She is currently on 3 L of oxygen by nasal cannula. This will be further weaned off. No active swelling in the tongue. No lip swelling. She does have crowding of the posterior pharynx and Mallampati class IV. There may be underlying component of obstructive sleep apnea. She remains prednisone burst taper for now and there is no signs of any upper airway obstruction or swelling at this point in time. Acute hypoxemic and hypercapnic respiratory failure secondary to above, currently on 3 L of O2 nasal cannula, the patient continues to have some atelectatic changes and possible some early infiltrates in lung bases and the patient remains hypoxic based on the CT angiogram. Hypotension and possible anaphylactic shock, recovered Essential hypertension Diabetes mellitus type 2, [id number], there is a component of steroid-induced hyperglycemia Chronic kidney disease stage III CML currently being treated with Gleevec Obesity, with a BMI of 37 Plan: The patient is still hypoxic with exertion and the patient will be arrange home O2 Placed the patient on Augmentin 875 mg by mouth twice a day for 7 days Prednisone burst taper Incentive spirometer Wean down FiO2 Arrange for home O2 Avoid OLMAN inhibitor medications Outpatient polysomnography IV fluids to KVO May be able to go home today on home O2
== END 2023-01-26 16:19 | disposition home or self-care (01) | DRG 915 ==
LOC: EC 21:16 → 2SICU 23:20 → 5NMEDONC 01-24 15:04
PROVIDERS: ADMIT Internal Medicine; ATTEND Internal Medicine
PROC: 0BH18EZ Insertion of Endotracheal Airway into Trachea, Via Natural or Artificial Opening Endoscopic (ICD-10-PCS; principal; 2023-01-21)
PROC: 5A1945Z Respiratory Ventilation, 24-96 Consecutive Hours (ICD-10-PCS; 2023-01-21)
PROC: 0D9670Z Drainage of Stomach with Drainage Device, Via Natural or Artificial Opening (ICD-10-PCS; 2023-01-21)
PROC: 3E033XZ Introduction of Vasopressor into Peripheral Vein, Percutaneous Approach (ICD-10-PCS; 2023-01-21)
DX: T78.2XXA Anaphylactic shock, unspecified, initial encounter (principal); J96.01 Acute respiratory failure with hypoxia; J96.02 Acute respiratory failure with hypercapnia; Z99.11 Dependence on respirator [ventilator] status; E87.20 Acidosis, unspecified; C92.11 Chronic myeloid leukemia, BCR/ABL-positive, in remission; E11.22 Type 2 diabetes mellitus with diabetic chronic kidney disease; E66.01 Morbid (severe) obesity due to excess calories; E11.65 Type 2 diabetes mellitus with hyperglycemia; I12.9 Hypertensive chronic kidney disease with stage 1 through stage 4 chronic kidney disease, or unspecified chronic kidney disease; N18.30 Chronic kidney disease, stage 3 unspecified; T88.4XXA Failed or difficult intubation, initial encounter; T78.3XXA Angioneurotic edema, initial encounter; T46.4X5A Adverse effect of angiotensin-converting-enzyme inhibitors, initial encounter; F41.0 Panic disorder [episodic paroxysmal anxiety]; G47.33 Obstructive sleep apnea (adult) (pediatric); T38.0X5A Adverse effect of glucocorticoids and synthetic analogues, initial encounter; Z68.39 Body mass index [BMI] 39.0-39.9, adult; Z79.899 Other long term (current) drug therapy; Z79.84 Long term (current) use of oral hypoglycemic drugs; Z88.8 Allergy status to other drugs, medicaments and biological substances
CPT/HCPCS: 31500; 36415; 36600; 71045; 71275; 80048; 80053; 82805; 83036; 83605; 83735; 84132; 85025; 86850; 86900; 86901; 87070; 87205; 93005; 94002; 94003; 94640; 94760; 96372; 96374; 96375; 99291

== ENCOUNTER 2023-09-20 20:39 | Emergency (ER) | payer BC ==
--- NOTE | 2023-09-20 20:52 | ED ---
Extremity Problem HPI - General Stated complaint: rt thumb pain Time Seen by Provider: 09/20/23 20:52 Source: patient, RN notes reviewed Mode of arrival: ambulatory Limitations: no limitations - History of Present Illness Initial comments: Patient is a 53-year-old female presented to ER with a chief complaint of right thumb swelling. Patient states that started about 20 minutes ago. Patient is endorsing mild paresthesias to the pad of her distal thumb. Denies any injuries or trauma. - Related Data Home Medications Medication Instructions Recorded Confirmed atenoloL [Atenolol] 50 mg PO DAILY 07/08/15 01/21/23 Imatinib Mesylate [Gleevec] 400 mg PO DAILY 03/25/17 01/21/23 Escitalopram [Lexapro] 5 mg PO DAILY 01/21/23 01/21/23 Triamcinolone 0.1% Ointment 1 applic TOPICAL BID 01/21/23 01/21/23 [Kenalog 0.1% Ointment] metFORMIN HCL [Glucophage] 500 mg PO DAILY 01/21/23 01/21/23 Previous Rx's Medication Instructions Recorded predniSONE 10 mg PO DIRECTED 16 Days #40 01/25/23 tab Amoxic-Pot Clav 875-125Mg 1 each PO Q12HR tab 01/26/23 [Augmentin 875-125] Allergies Allergy/AdvReac Type Severity Reaction Status Date / Time lisinopril Allergy Anaphylaxis Verified 01/21/23 22:40 Review of Systems ROS Statement: Those systems with pertinent positive or pertinent negative responses have been documented in the HPI. ROS Other: All systems not noted in ROS Statement are negative. Past Medical History Past Medical History: Cancer, Hypertension Additional Past Medical History / Comment(s): leukemia, kidney stones History of Any Multi-Drug Resistant Organisms: None Reported Past Surgical History: Tubal Ligation Additional Past Surgical History / Comment(s): lithrotripsy, bone marrow biopsy Past Anesthesia/Blood Transfusion Reactions: No Reported Reaction Past Psychological History: Anxiety Smoking Status: Never smoker - Past Family History Mother Family Medical History: Diabetes Mellitus General Exam - General Exam Comments Initial Comments: Visual Physical Exam Vital signs reviewed General: Well-appearing, nontoxic, no acute distress. Head: Normocephalic, atraumatic Eyes: PERRLA, EOMI ENT: Airway patent Chest: Nonlabored breathing Skin: No visual rash, normal skin tone Neuro: Alert and oriented 3 Musculoskeletal: No gross abnormalities Limitations: no limitations Course Vital Signs 09/20/23 09/20/23 20:49 21:51 Temperature 97.8 F 98 F Pulse Rate 95 80 Respiratory 18 18 Rate Blood Pressure 171/93 143/82 O2 Sat by Pulse 99 97 Oximetry Medical Decision Making - Medical Decision Making I performed the quick note portion of this chart. Electronically signed by Blu Lozano PA-C Was pt. sent in by a medical professional or institution ([facility], [facility], urgent care, hospital, or custodial...) When possible be specific @ -No Did you speak to anyone other than the patient for history (EMS, parent, family, police, friend...)? What history was obtained from this source @ -No Did you review nursing and triage notes (agree or disagree)? Why? @ -I reviewed and agree with nursing and triage notes Were old charts reviewed (outside hosp., previous admission, EMS record, old EKG, old radiological studies, urgent care reports/EKG's, custodial records)? Report findings @ -No old charts were reviewed Differential Diagnosis (chest pain, altered mental status, abdominal pain women, abdominal pain men, vaginal bleeding, weakness, fever, dyspnea, syncope, headache, dizziness, GI bleed, back pain, seizure, CVA, palpatations, mental health, musculoskeletal)? @ -Differential Musculoskeletal Muscular strain, contusion, ligament sprain, fracture, arthritis, septic arthritis, bursitis, cellulitis, muscle spasm, nerve compression, DVT, arterial occlusion, herpes zoster, electrolyte abnormality, tumor.... This is not meant to be in all inclusive list EKG interpreted by me (3pts min.). @ -None X-rays interpreted by me (1pt min.). @ -Right finger x-ray interpreted by me shows no acute process. CT interpreted by me (1pt min.). @ -None done U/S interpreted by me (1pt. min.). @ -None done What testing was considered but not performed or refused? (CT, X-rays, U/S, labs)? Why? @ -None What meds were considered but not given or refused? Why? @ -None Did you discuss the management of the patient with other professionals (professionals i.e. [facility], [facility], lab, RT, psych nurse, social work administrator, daycare assistant, teacher, commissioned defence force officer, renal case manager)? Give summary @ -No Was smoking cessation discussed for >3mins.? @ -No Was critical care preformed (if so, how long)? @ -No Were there social determinants of health that impacted care today? How? (Homelessness, low income, unemployed, alcoholism, drug addiction, transportation, low edu. Level, literacy, decrease access to med. care, correction, rehab)? @ -No Was there de-escalation of care discussed even if they declined (Discuss DNR or withdrawal of care, Hospice)? DNR status @ -No What co-morbidities impacted this encounter? (DM, HTN, Smoking, COPD, CAD, Cancer, CVA, ARF, Chemo, Hep., AIDS, mental health diagnosis, sleep apnea, morbid obesity)? @ -Obese Was patient admitted / discharged? Hospital course, mention meds given and route, prescriptions, significant lab abnormalities, going to OR and other pertinent info. @ -Discharge. Patient is a 53-year-old female presented to ER with chief comp laint of right thumb swelling. History and physical exam were completed. Vitals stable. Patient's right upper extremity neurovascularly intact. No point tenderness. Patient in no signs of acute distress and nontoxic-appearing. X- rays obtained show no acute process. Advised [id number] Tylenol and Motrin and ice for symptom control. Return parameters were discussed. Patient be discharged stable condition with follow-up to PCP. Patient expressed understanding and agreement with care plan. Undiagnosed new problem with uncertain prognosis? @ -No Drug Therapy requiring intensive monitoring for toxicity (Heparin, Nitro, Insulin, Cardizem)? @ -No Were any procedures done? @ -No Diagnosis/symptom? @ -Right thumb swelling Acute, or Chronic, or Acute on Chronic? @ -Acute Uncomplicated (without systemic symptoms) or Complicated (systemic symptoms)? @ -Uncomplicated Side effects of treatment? @ -No Exacerbation, Progression, or Severe Exacerbation? @ -No Poses a threat to life or bodily function? How? (Chest pain, [place], [place], pneumonia, PE, COPD, DKA, ARF, appy, cholecystitis, CVA, Diverticulitis, Homicidal, Suicidal, threat to staff... and all critical care pts) @ -No - Radiology Data Radiology results: report reviewed, image reviewed Disposition Clinical Impression: Thumb swelling Disposition: HOME SELF-CARE Condition: Stable Additional Instructions: Please follow-up with PCP in the next 1 to 2 days. You may take [id number] Tylenol and Motrin for pain control. You may also ice. Please return to the ER for any new or worsening symptoms. Is patient prescribed a controlled substance at d/c from ED?: No Referrals: Cady Caal MD [Primary Care Provider] - 1-2 days Time of Disposition: 21:44
[2023-09-20 21:12] VITALS: RESP 18
--- NOTE | 2023-09-20 21:21 | XR ---
EXAMINATION TYPE: XR finger RT DATE OF EXAM: 09/20/2023 9:16 PM CLINICAL INDICATION:Female, 53 years old with history of swelling; COMPARISON: None TECHNIQUE: XR finger RT Frontal, lateral and oblique views were obtained. FINDINGS: Normal alignment of the visualized joints. No acute osseous pathology is identified. No e vidence of soft tissue swelling. IMPRESSION: No acute osseous pathology.
[2023-09-20 22:12] VITALS: BP 143/82; PULSE 80; TEMP 98
== END 2023-09-20 21:53 | disposition home or self-care (01) ==
LOC: EC 20:39
DX: M79.89 Other specified soft tissue disorders (principal); I10 Essential (primary) hypertension; Z86.59 Personal history of other mental and behavioral disorders; Z88.8 Allergy status to other drugs, medicaments and biological substances; Z79.899 Other long term (current) drug therapy
CPT/HCPCS: 99283